=== PATIENT | male | born 2000 | race Caucasian/White ===

== ENCOUNTER 2021-08-03 14:37 | Inpatient (IN) ==
[2021-08-03] MEDS ORDERED: FAMOTIDINE 20MG IV PUSH 20 MG/5 ML SYR IV STA (15:15)
[2021-08-03] MEDS ORDERED: ONDANSETRON INJ 2 MG/ML 2 ML VIAL IV STA (15:15)
[2021-08-03] MEDS ORDERED: SODIUM CHLORIDE 0.9% 1000ML 2,000 ML IV ONE (15:15)
[2021-08-03 15:19] LABS: Hemoglobin 13.4 g/dL (14.0-18.0); Mean Corpuscular Hgb Conc 34.4 g/dL (32-36); Mean Platelet Volume 9.7 fL (7.4-10.4); Platelet Count 188 K/uL (130-400); RDW Coefficient of Variation 14.3 % (11.5-14.5); RDW Standard Deviation 50.5 fL (36.4-46.3); Red Blood Count 3.94 M/uL (4.7-6.1); White Blood Count 12.82 K/uL (4.8-10.8)
[2021-08-03 15:41] LABS: ALC (manual) 6.18 K/uL (1.2-3.4); ANC (manual) 5.04 K/uL (1.4-6.5); Basophils # (manual) 0.12 K/uL (0-0.2); Basophils % (manual) 0.9 %; Lymphocytes # (manual) 1.72 K/uL (1.2-3.4); Lymphocytes % (manual) 13.4 %; Metamyelocytes # (manual) 0.23 K/uL (0-0); Metamyelocytes % (manual) 1.8 %; Monocytes # (manual) 1.14 K/uL (0.11-0.59); Monocytes % (manual) 8.9 %; Myelocytes # (manual) 0.12 K/uL (0-0); Myelocytes % (manual) 0.9 %; Neutrophils # (manual) 5.04 K/uL (1.4-6.5); Neutrophils % (manual) 39.3 %; Polychromasia 1+; Reactive Lymphocytes # (manual) 4.46 K/uL; Reactive Lymphocytes % (manual) 34.8 %
[2021-08-03 15:55] LABS: INR 1.2 (0.9-1.1); Prothrombin Time 11.7 Seconds (9.0-12.0)
[2021-08-03 16:09] LABS: Albumin Globulin Ratio 0.8 (0.9-2); Albumin Level 3.6 gm/dl (3.4-5.0); BUN Creatinine Ratio 11.4 (10-20); Bilirubin Direct 7.5 mg/dl (0-0.2); Bilirubin,Total 10.2 mg/dl (0.2-1); Calcium 9.6 mg/dl (8.5-10.1); Creatinine Clr Calc Pharmacy 106.1 ml/min; Est GFR (African American) 106.7 ml/min; Est GFR (Non-African American) 92.1 ml/min; Globulin 4.7 gm/dl (2.5-4.0); Potassium 3.6 mmol/L (3.5-5.1); Total Protein 8.3 gm/dl (6.4-8.2)
[2021-08-03 16:30] LABS: Magnesium 2.2 mg/dl (1.8-2.4); Monotest Positive (Negative); Phosphorus 3.4 mg/dl (2.5-4.9)
[2021-08-03] MEDS ORDERED: OPTIRAY 320 100ml IV ONE (16:38)
--- NOTE | 2021-08-03 16:40 | Emergency Department Note ---
Impression & Plan Transaminitis, Direct hyperbilirubinemia, Infectious mononucleosis ED Provider Note NAME: ALENA WEISS AGE: 20 SEX: M ARRIVES VIA: Walk-In INFORMANT: Patient, ED PROVIDER(S): Juan Manuel Alanis MD CHIEF COMPLAINT: Jaundice. PLAN: Disposition: Admit MEDICAL DECISION MAKING: The patient is a pleasant 20-year-old gentleman, [employer] student who presents emergency department referred from [facility] for painless jaundice that the patient only noticed today when he was at the [facility] clinic. The patient reports he made his appointment to adjust today more because he has felt nauseated and has been not able to eat and drink much. He notes his roommates did comment that he looked pale but did not recognize the jaundice initially. He denies any frequent alcohol use or recent alcohol binging. He does admit to having viral illness symptoms several weeks ago where he reports feverishness, body aches, sore throat and mild congestion which resolved with out intervention. He reports he is vaccinated for COVID-19 numerous months ago and denies any known COVID-19 exposures. He does acknowledge that he was in contact with a friend who he suspects may have had mono approximately 6 weeks ago. He denies any known tick exposures. He denies any recent travel or camping. On arrival patient is relatively well-appearing in no acute distress, afebrile with heart in the 120s and vital signs otherwise stable. He does appear overtly jaundiced with scleral icterus. He appears clinically dry. His abdomen is benign. WBC 12.8K, nonspecific. H/H 13.4/39.0 without prior values for comparison. Platelets within normal limits. INR 1.2. Chemistry without metabolic acidosis. Total bilirubin 10.2 with direct bilirubin 7.5 with AST and ALT 423 and 686, respectively. Lipase is not elevated. [place] screen is positive. CT abd/pelvis demonstrates moderate hepatosplenomegaly with no evidence for biliary duct dilatation. Upon re-evaluation the patient did feel some improvement following IVF hydration, zofran, and pepcid. HR improving. Findings were reviewed with the patient and his father over the phone. They agree with becka faye for admission for further evaluation and management. Case was discussed with Dr. Pringle, [facility] hospitalist, who will evaluate the patient for admission. Triage Nursing notes reviewed and agree them. Prior medical records reviewed Vital Signs: reviewed and remarkable for tachycardia. Differential diagnosis: Infection, dehydration, metabolic abnormality, hypo/hyperglycemia, electrolyte disturbance, anemia, hypoxia, cardiac sources, intracerebral event, toxicologic, neurologic, as well as other pathologies. ER treatment provided: See below. Diagnostics interpreted by me: Cardiac Monitoring: An order for continuous cardiac monitoring was placed and demonstrated Sinus tachycardia, 120s bpm, no ectopy. Laboratory studies: See below Imaging studies: See below Consultation(s): Case was discussed with Dr. Pringle, [facility] hospitalist, who will evaluate the patient for admission. HPI: The patient is a pleasant 20-year-old gentleman, [employer] student who presents to the emergency department referred from [facility] for painless jaundice that the patient only noticed today when he was at the [facility] clinic. The patient reports he made his appointment to adjust today more because he has felt nauseated and has been not able to eat and drink much. He notes his roommates did comment that he looked pale but did not recognize the jaundice initially. He denies any frequent alcohol use or recent alcohol binging. He does admit to having viral illness symptoms several weeks ago where he reports feverishness, body aches, sore throat and mild congestion which resolved with out intervention. He reports he is vaccinated for COVID-19 numerous months ago and denies any known COVID-19 exposures. He does acknowledge that he was in contact with a friend who he suspects may have had mono approximately 6 weeks ago. He denies any known tick exposures. He denies any recent travel or camping. ROS: See above HPI for pertinent positives & negatives. A total of 10 systems reviewed and were otherwise negative. PAST MEDICAL HISTORY:See Below PAST SURGICAL HISTORY:See Below FAMILY HISTORY:See Below SOCIAL HISTORY:See Below HOME MEDICATIONS:See Below ALLERGIES:See Below VITALS:See Below PHYSICAL EXAMINATION: GENERAL: Awake, alert, relatively well-appearing, in no distress HENT: Normocephalic, atraumatic. Oropharynx with dry mucous membranes and otherwise unremarkable. EYES: Normal conjunctiva. Sclera with mild icterus bilaterally. NECK: Supple. No nuchal rigidity. FROM. No JVD. RESPIRATORY: Clear to auscultation. CARDIAC: Regular rate, normal rhythm. Extremities warm and well perfused. Pulses equal. ABDOMEN: Soft, non-distended. No tenderness to palpation. No rebound or guarding. No masses. RECTAL: Deferred. MUSCULOSKELETAL: Chest examination reveals no tenderness. The back is symmetrical on inspection without obvious abnormality. There is no CVA tenderness to palpation. No joint edema. LOWER EXTREMITIES: Calves are equal size bilaterally and non-tender. No edema. No discoloration. NEURO: Normal sensorium. No sensory or motor deficits noted. SKIN: Jaundice noted. No rash. 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 Beliefs That Will Affect Care: None Current Living Situation: Other Current Living Situation Comment: student at [employer] Other Information That Helps Us Care for You: No Feels Safe at Home: Yes Safety Concerns: Feels Safe At This Time Assistive Devices: None Allergies Allergies Allergy/AdvReac Type Severity Reaction Status Date / Time No Known Allergies Allergy Unverified 08/03/21 16:11 Home Meds Home Medications Medication Instructions Recorded Confirmed fexofenadine-pseudoephedrine ER 1 tab PO QAM 08/03/21 08/03/21 180 mg-240 mg tablet,ext.release 24 hr Results & Data (ED) Vital Signs Vital Signs - 24 hr 08/03/21 14:39 08/03/21 15:38 08/03/21 15:43 Temperature 36.3 C L Temperature Source Temporal Artery Scan Pulse Rate 129 H 105 H Pulse Rate from SpO2 Sensor 107 H Respiratory Rate 16 20 Respiratory Effort / Characteristics Non-Labored Respiratory Depth Normal Blood Pressure 149/65 H Blood Pressure Mean 93 Pulse Oximetry 99 97 99 Oxygen Delivery Method Room Air Sepsis Recent Fever Within 48 Hours No Sepsis New/Unexplained Change in Mental Status No Sepsis Action Taken by Nursing No Action Required 08/03/21 15:50 08/03/21 16:00 08/03/21 16:10 Temperature Temperature Source Pulse Rate 107 H 102 H 111 H Pulse Rate from SpO2 Sensor 110 H 103 H 111 H Respiratory Rate 21 17 20 Respiratory Effort / Characteristics Respiratory Depth Blood Pressure 139/88 119/89 Blood Pressure Mean 105 99 Pulse Oximetry 100 99 99 Oxygen Delivery Method Sepsis Recent Fever Within 48 Hours Sepsis New/Unexplained Change in Mental Status Sepsis Action Taken by Nursing 08/03/21 16:20 08/03/21 16:41 08/03/21 16:50 Temperature Temperature Source Pulse Rate 106 H 110 H 101 H Pulse Rate from SpO2 Sensor 106 H 103 H Respiratory Rate 18 14 22 Respiratory Effort / Characteristics Respiratory Depth Blood Pressure Blood Pressure Mean Pulse Oximetry 99 99 Oxygen Delivery Method Sepsis Recent Fever Within 48 Hours Sepsis New/Unexplained Change in Mental Status Sepsis Action Taken by Nursing 08/03/21 17:00 08/03/21 17:10 08/03/21 17:24 Temperature Temperature Source Pulse Rate 102 H 97 H 105 H Pulse Rate from SpO2 Sensor 101 H 97 H Respiratory Rate 23 19 22 Respiratory Effort / Characteristics Respiratory Depth Blood Pressure 131/73 Blood Pressure Mean 92 Pulse Oximetry 98 99 Oxygen Delivery Method Sepsis Recent Fever Within 48 Hours Sepsis New/Unexplained Change in Mental Status Sepsis Action Taken by Nursing 08/03/21 17:30 08/03/21 17:40 08/03/21 17:50 Temperature Temperature Source Pulse Rate 98 H 113 H 117 H Pulse Rate from SpO2 Sensor 98 H 108 H 117 H Respiratory Rate 21 15 18 Respiratory Effort / Characteristics Respiratory Depth Blood Pressure 142/87 H Blood Pressure Mean 105 Pulse Oximetry 99 98 97 Oxygen Delivery Method Sepsis Recent Fever Within 48 Hours Sepsis New/Unexplained Change in Mental Status Sepsis Action Taken by Nursing 08/03/21 18:00 08/03/21 18:10 08/03/21 18:20 Temperature Temperature Source Pulse Rate 110 H 102 H 130 H Pulse Rate from SpO2 Sensor 111 H 101 H 130 H Respiratory Rate 23 22 16 Respiratory Effort / Characteristics Respiratory Depth Blood Pressure Blood Pressure Mean Pulse Oximetry 97 96 97 Oxygen Delivery Method Sepsis Recent Fever Within 48 Hours Sepsis New/Unexplained Change in Mental Status Sepsis Action Taken by Nursing 08/03/21 18:30 Temperature Temperature Source Pulse Rate 105 H Pulse Rate from SpO2 Sensor 108 H Respiratory Rate 22 Respiratory Effort / Characteristics Respiratory Depth Blood Pressure 150/83 H Blood Pressure Mean 105 Pulse Oximetry 97 Oxygen Delivery Method Sepsis Recent Fever Within 48 Hours Sepsis New/Unexplained Change in Mental Status Sepsis Action Taken by Nursing Laboratory Data Attestation: I reviewed the patient's lab results. Result diagrams: 08/03/21 15:07 08/03/21 15:07 Lab Results 08/03/21 08/03/21 08/03/21 Range/Units 15:07 15:07 15:07 WBC 12.82 H (4.8-10.8) K/uL RBC 3.94 L (4.7-6.1) M/uL Hgb 13.4 L (14.0-18.0) g/dL Hct 39.0 L (42-52) % MCV 99.0 (80-100) fL MCH 34.0 (25-34) pg MCHC 34.4 (32-36) g/dL RDW Std Deviation 50.5 H (36.4-46.3) fL RDW Coeff of Emily 14.3 (11.5-14.5) % Plt Count 188 (130-400) K/uL MPV 9.7 (7.4-10.4) fL Neutrophils % (Manual) 39.3 % Lymphocytes % (Manual) 13.4 % Reactive Lymphs % (Man) 34.8 % Monocytes % (Manual) 8.9 % Basophils % (Manual) 0.9 % Metamyelocytes % (Man) 1.8 % Myelocytes % (Man) 0.9 % Neutrophils # (Manual) 5.04 (1.4-6.5) K/uL Total Absolute Neuts 5.04 (1.4-6.5) K/uL Lymphocytes # (Manual) 1.72 (1.2-3.4) K/uL Reactive Lymphs # 4.46 K/uL Total Abs Lymphocytes 6.18 H (1.2-3.4) K/uL Monocytes # (Manual) 1.14 H (0.11-0.59) K/uL Basophils # (Manual) 0.12 (0-0.2) K/uL Metamyelocytes # (Man) 0.23 H (0-0) K/uL Myelocytes # (Manual) 0.12 H (0-0) K/uL Polychromasia 1+ PT (9.0-12.0) Seconds INR (0.9-1.1) Sodium 134 L (136-145) mmol/L Potassium 3.6 (3.5-5.1) mmol/L Chloride 102 (98-107) mmol/L Carbon Dioxide 24 (21-32) mmol/L Anion Gap 9.0 (3-11) BUN 13 (7-18) mg/dl Creatinine 1.14 (0.6-1.4) mg/dl Est Cr Clr Drug Dosing 106.1 ml/min Est GFR ( Amer) 106.7 ml/min Est GFR (Non-Af Amer) 92.1 ml/min BUN/Creatinine Ratio 11.4 (10-20) Glucose 104 H (70-99) mg/dl Calcium 9.6 (8.5-10.1) mg/dl Phosphorus (2.5-4.9) mg/dl Magnesium (1.8-2.4) mg/dl Total Bilirubin 10.2 H (0.2-1) mg/dl Direct Bilirubin 7.5 H (0-0.2) mg/dl AST 423 H (15-37) U/L ALT 686 H (12-78) U/L Alkaline Phosphatase 230 H (45-117) U/L Total Protein 8.3 H (6.4-8.2) gm/dl Albumin 3.6 (3.4-5.0) gm/dl Globulin 4.7 H (2.5-4.0) gm/dl Albumin/Globulin Ratio 0.8 L (0.9-2) Lipase 247 (73-393) U/L Urine Color Urine Appearance (Clear) Urine pH (4.5-7.5) Ur Specific [place] (1.000-1.030) Urine Protein (Negative) Urine Glucose (UA) (Negative) Urine Ketones (Negative) Urine Blood (Negative) Urine Nitrite (Negative) Urine Bilirubin (Negative) Urine Urobilinogen (Negative) Ur Leukocyte Esterase (Negative) Urine WBC (Auto) (0-5) /hpf Urine RBC (Auto) (0-4) /hpf U Hyaline Cast (Auto) (0-5) /lpf U Epithel Cells (Auto) (0-5) /lpf Urine Bacteria (Auto) (Negative) Anaplasma Smear See Comment Babesia Smear See Comment Lyme Disease IgG Ab (Negative) Lyme Disease IgM Ab (Negative) COVID-19 Eval Order SARS-CoV-2 (PCR) (Negative) Monoscreen (Negative) 08/03/21 08/03/21 08/03/21 Range/Units 15:14 15:14 15:14 WBC (4.8-10.8) K/uL RBC (4.7-6.1) M/uL Hgb (14.0-18.0) g/dL Hct (42-52) % MCV (80-100) fL MCH (25-34) pg MCHC (32-36) g/dL RDW Std Deviation (36.4-46.3) fL RDW Coeff of Emily (11.5-14.5) % Plt Count (130-400) K/uL MPV (7.4-10.4) fL Neutrophils % (Manual) % Lymphocytes % (Manual) % Reactive Lymphs % (Man) % Monocytes % (Manual) % Basophils % (Manual) % Metamyelocytes % (Man) % Myelocytes % (Man) % Neutrophils # (Manual) (1.4-6.5) K/uL Total Absolute Neuts (1.4-6.5) K/uL Lymphocytes # (Manual) (1.2-3.4) K/uL Reactive Lymphs # K/uL Total Abs Lymphocytes (1.2-3.4) K/uL Monocytes # (Manual) (0.11-0.59) K/uL Basophils # (Manual) (0-0.2) K/uL Metamyelocytes # (Man) (0-0) K/uL Myelocytes # (Manual) (0-0) K/uL Polychromasia PT 11.7 (9.0-12.0) Seconds INR 1.2 H (0.9-1.1) Sodium (136-145) mmol/L Potassium (3.5-5.1) mmol/L Chloride (98-107) mmol/L Carbon Dioxide (21-32) mmol/L Anion Gap (3-11) BUN (7-18) mg/dl Creatinine (0.6-1.4) mg/dl Est Cr Clr Drug Dosing ml/min Est GFR ( Amer) ml/min Est GFR (Non-Af Amer) ml/min BUN/Creatinine Ratio (10-20) Glucose (70-99) mg/dl Calcium (8.5-10.1) mg/dl Phosphorus 3.4 (2.5-4.9) mg/dl Magnesium 2.2 (1.8-2.4) mg/dl Total Bilirubin (0.2-1) mg/dl Direct Bilirubin (0-0.2) mg/dl AST (15-37) U/L ALT (12-78) U/L Alkaline Phosphatase (45-117) U/L Total Protein (6.4-8.2) gm/dl Albumin (3.4-5.0) gm/dl Globulin (2.5-4.0) gm/dl Albumin/Globulin Ratio (0.9-2) Lipase (73-393) U/L Urine Color Urine Appearance (Clear) Urine pH (4.5-7.5) Ur Specific [place] (1.000-1.030) Urine Protein (Negative) Urine Glucose (UA) (Negative) Urine Ketones (Negative) Urine Blood (Negative) Urine Nitrite (Negative) Urine Bilirubin (Negative) Urine Urobilinogen (Negative) Ur Leukocyte Esterase (Negative) Urine WBC (Auto) (0-5) /hpf Urine RBC (Auto) (0-4) /hpf U Hyaline Cast (Auto) (0-5) /lpf U Epithel Cells (Auto) (0-5) /lpf Urine Bacteria (Auto) (Negative) Anaplasma Smear Babesia Smear Lyme Disease IgG Ab Negative (Negative) Lyme Disease IgM Ab Negative (Negative) COVID-19 Eval Order SARS-CoV-2 (PCR) (Negative) Monoscreen Positive A (Negative) 08/03/21 08/03/21 08/03/21 Range/Units 15:30 15:30 17:25 WBC (4.8-10.8) K/uL RBC (4.7-6.1) M/uL Hgb (14.0-18.0) g/dL Hct (42-52) % MCV (80-100) fL MCH (25-34) pg MCHC (32-36) g/dL RDW Std Deviation (36.4-46.3) fL RDW Coeff of Emily (11.5-14.5) % Plt Count (130-400) K/uL MPV (7.4-10.4) fL Neutrophils % (Manual) % Lymphocytes % (Manual) % Reactive Lymphs % (Man) % Monocytes % (Manual) % Basophils % (Manual) % Metamyelocytes % (Man) % Myelocytes % (Man) % Neutrophils # (Manual) (1.4-6.5) K/uL Total Absolute Neuts (1.4-6.5) K/uL Lymphocytes # (Manual) (1.2-3.4) K/uL Reactive Lymphs # K/uL Total Abs Lymphocytes (1.2-3.4) K/uL Monocytes # (Manual) (0.11-0.59) K/uL Basophils # (Manual) (0-0.2) K/uL Metamyelocytes # (Man) (0-0) K/uL Myelocytes # (Manual) (0-0) K/uL Polychromasia PT (9.0-12.0) Seconds INR (0.9-1.1) Sodium (136-145) mmol/L Potassium (3.5-5.1) mmol/L Chloride (98-107) mmol/L Carbon Dioxide (21-32) mmol/L Anion Gap (3-11) BUN (7-18) mg/dl Creatinine (0.6-1.4) mg/dl Est Cr Clr Drug Dosing ml/min Est GFR ( Amer) ml/min Est GFR (Non-Af Amer) ml/min BUN/Creatinine Ratio (10-20) Glucose (70-99) mg/dl Calcium (8.5-10.1) mg/dl Phosphorus (2.5-4.9) mg/dl Magnesium (1.8-2.4) mg/dl Total Bilirubin (0.2-1) mg/dl Direct Bilirubin (0-0.2) mg/dl AST (15-37) U/L ALT (12-78) U/L Alkaline Phosphatase (45-117) U/L Total Protein (6.4-8.2) gm/dl Albumin (3.4-5.0) gm/dl Globulin (2.5-4.0) gm/dl Albumin/Globulin Ratio (0.9-2) Lipase (73-393) U/L Urine Color Dark Yellow Urine Appearance Clear (Clear) Urine pH 5.5 (4.5-7.5) Ur Specific [place] > 1.045 H (1.000-1.030) Urine Protein Negative (Negative) Urine Glucose (UA) Negative (Negative) Urine Ketones 1+ H (Negative) Urine Blood Negative (Negative) Urine Nitrite Positive A (Negative) Urine Bilirubin 3+ H (Negative) Urine Urobilinogen Positive H (Negative) Ur Leukocyte Esterase Trace H (Negative) Urine WBC (Auto) 1-5 (0-5) /hpf Urine RBC (Auto) 0-4 (0-4) /hpf U Hyaline Cast (Auto) 0 (0-5) /lpf U Epithel Cells (Auto) 0-5 (0-5) /lpf Urine Bacteria (Auto) Negative (Negative) Anaplasma Smear Babesia Smear Lyme Disease IgG Ab (Negative) Lyme Disease IgM Ab (Negative) COVID-[address] Eval [address] Covid19 at [facility] SARS-CoV-2 (PCR) NEGATIVE (Negative) Monoscreen (Negative) Administered Medications Lactated Ringer's (Lr) 1,000 mls @ 125 mls/hr IV .Q8H JIMBO Stop: 09/02/21 18:59 Last Admin: 08/03/21 21:11 Dose: 125 mls/hr Documented by: [id number] Discontinued Medications Sodium Chloride (Nss 1000ml) 2,000 mls @ 999 mls/hr IV .Q2H1M ONE Stop: 08/03/21 17:15 Last Infusion: 08/03/21 17:54 Dose: 0 mls/hr Documented by: [id number] Admin: 08/03/21 15:25 Dose: 999 mls/hr Documented by: [id number] Famotidine (Pepcid 20mg Iv Push) 20 mg in 5 mls @ 2.5 mls/min IV NOW STA Stop: 08/03/21 15:16 Last Admin: 08/03/21 15:25 Dose: 2.5 mls/min Documented by: [id number] Ibuprofen (Ibuprofen 200 Mg Tab) 400 mg PO NOW STA Stop: 08/03/21 21:37 Last Admin: 08/03/21 22:01 Dose: 400 mg Documented by: [id number] Ioversol (Optiray 320 100ml) 84 ml IV ONCE ONE Stop: 08/03/21 16:39 Last Admin: 08/03/21 16:38 Dose: 84 ml Documented by: [id number] Menthol (Cough Drop (Sugar Free) Khai 24 Khai/1 Box) Confirm Administered Dose 24 khai BUCCAL .STK-MED ONE Stop: 08/03/21 21:30 Last Admin: 08/03/21 21:30 Dose: 24 khai Documented by: [id number] Ondansetron HCl (Ondansetron Inj 2 Mg/Ml 2 Ml Vial) 4 mg IV NOW STA Stop: 08/03/21 15:16 Last Admin: 08/03/21 15:25 Dose: 4 mg Documented by: [id number] Imaging Data Radiologist's Impression: Abdomen/Pelvis CT 08/03/21 15:15 CT abd pelvis IV con only CLINICAL HISTORY: painless jaundice COMPARISON STUDY: No previous studies for comparison. CT DOSE: 376.56 mGycm TECHNIQUE: Standard CT of the Abdomen and Pelvis was performed with IV contrast. A dose lowering technique was utilized adhering to the principles of ALARA. Contrast Volume: Optiray 320, 84 ml. The patient did not receive oral contrast. FINDINGS: Lung base: The lung bases are clear. Abdominal cavity: There is no evidence for abdominal mass, adenopathy or ascites. Liver: There is homogeneous attenuation of the liver parenchyma. There is no evidence for enhancing mass lesion. There is moderate hepatomegaly. There is no biliary duct dilatation. Spleen: There is homogeneous attenuation of the splenic parenchyma. There is no enhancing mass lesion. There is moderate splenomegaly. Pancreas: There is homogeneous attenuation of the pancreatic parenchyma. There is no evidence for mass lesion or peripancreatic fluid collection. Gall Bladder: The gallbladder is well distended with no evidence for intraluminal calculi, wall thickening or pericholecystic edema. Adrenal glands: The adrenal glands are normal in size and attenuation. There is no evidence for enhancing mass lesion. Kidneys: There is homogeneous attenuation of the renal parenchyma bilaterally. There is no evidence for renal calculus or hydronephrosis. There is no evidence for enhancing mass. Bowel: There are 2 linear radiopaque density seen within the bowel most characteristic of ingested material such as pills. The bowel loops are normally placed within the abdomen and pelvis without evidence for dilatation or obstruction. There is no evidence for mass lesion. There are no inflammatory changes present. There is no evidence for free air. There is no evidence for an inflamed appendix. Bladder: The bladder is distended with no evidence for focal mass, calculus or diverticulum. : There is no evidence for pelvic mass or adenopathy. There is no evidence for pelvic ascites. Vasculature: There is no evidence for aneurysmal dilatation of the abdominal aorta. Osseous structures: There is no acute osseous pathology. IMPRESSION: 1. Moderate hepatosplenomegaly with no evidence for biliary duct dilatation. 2. Distention of the urinary bladder. ACT 112: Negative or not required by law. Electronically signed by: Norberto Ferris M.D. 08/03/2021 5:00 PM Discharge Plan Visit Data Chief Complaint: Abnormal Labs/Diagnostic Testing Stated Complaint: JAUNDICE ED Provider: Juan Manuel Alanis Discharge Problem: Transaminitis, Direct hyperbilirubinemia, Infectious mononucleosis Patient Disposition: Admitted As Inpatient Discharge Instructions Interventions: ED Discharge Assessment Last Done: 08/03/21 20:49
[2021-08-03 17:01] LABS: Lyme Ab IgG w/WB Rflx Negative (Negative); Lyme Ab IgM w/WB Rflx Negative (Negative)
--- NOTE | 2021-08-03 17:01 | CT Scan Report ---
CT abd pelvis IV con only CLINICAL HISTORY: painless jaundice COMPARISON STUDY: No previous studies for comparison. CT DOSE: 376.56 mGycm TECHNIQUE: Standard CT of the Abdomen and Pelvis was performed with IV contrast. A dose lowering alfie hnique was utilized adhering to the principles of ALARA. Contrast Volume: Optiray 320, 84 ml. The patient did not receive oral contrast. FINDINGS: Lung base: The lung bases are clear. Abdominal cavity: There is no evidence for abdominal mass, adenopathy or ascites. Liver: There is homogeneous attenuation of the liver parenchyma. There is no evidence for enhancing m ass lesion. There is moderate hepatomegaly. There is no biliary duct dilatation. Spleen: There is homogeneous attenuation of the splenic parenchyma. There is no enhancing mass lesion . There is moderate splenomegaly. Pancreas: There is homogeneous attenuation of the pancreatic parenchyma. There is no evidence for mas s lesion or peripancreatic fluid collection. Gall Bladder: The gallbladder is well distended with no evidence for intraluminal calculi, wall thick ening or pericholecystic edema. Adrenal glands: The adrenal glands are normal in size and attenuation. There is no evidence for enhan cing mass lesion. Kidneys: There is homogeneous attenuation of the renal parenchyma bilaterally. There is no evidence f or renal calculus or hydronephrosis. There is no evidence for enhancing mass. Bowel: There are 2 linear radiopaque density seen within the bowel most characteristic of ingested ma terial such as pills. The bowel loops are normally placed within the abdomen and pelvis without evide nce for dilatation or obstruction. There is no evidence for mass lesion. There are no inflammatory ch anges present. There is no evidence for free air. There is no evidence for an inflamed appendix. Bladder: The bladder is distended with no evidence for focal mass, calculus or diverticulum. : There is no evidence for pelvic mass or adenopathy. There is no evidence for pelvic ascites. Vasculature: There is no evidence for aneurysmal dilatation of the abdominal aorta. Osseous structures: There is no acute osseous pathology. IMPRESSION: 1. Moderate hepatosplenomegaly with no evidence for biliary duct dilatation. 2. Distention of the urinary bladder. ACT 112: Negative or not required by law. Electronically signed by: Norberto Ferris M.D. 08/03/2021 5:00 PM
[2021-08-03 17:35] LABS: Appearance Urine Clear (Clear); Bacteria Urine Automated Negative (Negative); Blood Urine Negative (Negative); Cast Urine Automated 0 /lpf (0-5); Color Urine Dark Yellow; Epithelial Cell Urine Auto 0-5 /lpf (0-5); Glucose Urine UA Negative (Negative); Ketones Urine 1+ (Negative); Leukocyte Esterase Urine Trace (Negative); Nitrite Urine Positive (Negative); Protein Urine Negative (Negative); RBC Urine Automated 0-4 /hpf (0-4); Specific Gravity Urine > 1.045 (1.000-1.030); Urobilinogen Urine Positive (Negative); pH Urine 5.5 (4.5-7.5)
[2021-08-03 17:38] LABS: Bilirubin Urine 3+ (Negative)
--- NOTE | 2021-08-03 18:04 | History & Physical Report ---
Date of Service August 03, 2021 Assessment & Plan (1) Transaminitis: Plan: 20-year-old male without significant past medical history presented for nausea and jaundice, subsequently found to have evidence of transaminitis, direct hyperbilirubinemia, and positive Monospot. Acute liver injury (transaminitis, direct hyperbilirubinemia) Patient presenting with transaminitis indirect hyperbilirubinemia in the setting of several days of constitutional illness and previous sore throat Work-up as follows: Recent salivary contact approximately 6 weeks ago with another individual Jaundice appreciated on exam, as well as mild hepatosplenomegaly Mild leukocytosis (thirteen) with lymphocytic predominance; notable presence of metamyelocytes and myelocytes INR mildly elevated 1.2 Mild hyponatremia at 134 ALT predominant transaminitis (ALT 686/AST 423) Negative Anaplasma smear, Lyme immunoglobulins negative, Covid negative CT-A/P demonstrating moderate hepatosplenomegaly without biliary ductal dilatation Primarily suspect that his clinical appearance is secondary to infectious mononucleosis. Low risk for sexually transmitted etiologies, denies IV drug use. Given CT abdomen pelvis and exam, lower concern for stone related etiology In lieu of secondary work-up: We will check HIV, EBV, CMV, hepatitis panel Continue LR @ 125cc/hr Monitor INR. If worsening, can give vitamin K Can consider GI consult and ultrasound of right upper quadrant if worsening symptoms/labs With regard to his splenomegaly, will require counseling regarding physical activity modification prior to discharge Elevated INR On admission, noted to be at 1.2 Likely secondary to the above. Monitor. If continues to rise, can consider vitamin K Psoriasis Stable, no acute needs. Code: Full code Dispo: MedSurg Diet: Regular PPx: SCDs (2) Direct hyperbilirubinemia: (3) Infectious mononucleosis: (4) Hyponatremia: (5) Acute hepatitis: History of Present Illness Primary Care Provider: [facility] Isaias is a 20-year-old male with a history of psoriasis (on biologic) who presented to [facility] following referral from [facility] for jaundice and generalized illness. History is obtained from patient. Patient states that on Monday, he began having a sore throat and felt ill. He says that as the week went on, he attempted to do his schoolwork, but progressively felt more ill. He felt febrile. Says he lost his appetite. O ccasionally felt nauseous without vomiting. No significant belly pain throughout this time. This morning, he did take an exam, but because feeling ill, he did decide to go to [facility] for evaluation. On further history taking, he said that approximately 6 weeks ago, he did have direct salivary contact with another individual; unknown mono status. He has felt in his normal health up until Monday. He is not currently or formally sexually active. Denies any use of IV drugs. Denies any alcohol use. His only significant past medical history is psoriasis, for which he is prescribed to the biologic. He last took this approximately 4 weeks ago. He does work at the [employer]. In the ER, patient was found to be mildly tachycardic and afebrile with jaundice. His labs were significant for a white count of approximately 13,000, normal platelets, INR 1.2. He had evidence of a direct hyperbilirubinemia with total bilirubin at 10.2, direct bilirubin at 7.5. Transaminitis appreciated with AST 423 and ALT 686. His mono screen was positive. Covid negative. Lipase negative. He did undergo a CT of the abdomen and pelvis, which did demonstrate moderate hepatosplenomegaly without evidence of biliary ductal dilation. He was given 2 L of fluid, Zofran, and famotidine. Allergies Allergy/AdvReac Type Severity Reaction Status Date / Time No Known Allergies Allergy Unverified 08/03/21 16:11 Home Medications Medication Instructions Recorded Confirmed Type fexofenadine-pseudoephedrine ER 1 tab PO QAM 08/03/21 08/03/21 History 180 mg-240 mg tablet,ext.release 24 hr Past Med/Surg History Medical History (Updated 08/04/21 @ 06:21 by Vasyl Pringle) Psoriasis Surgical History (Updated 08/04/21 @ 06:17 by Vasyl Pringle) No pertinent past surgical history Family History Other Family history non-contributory Social History Smoking Status: Never smoker Do You Dip or Chew Tobacco: No; Hx Alcohol Use: No Hx Substance Use: No Preferred Language: Romanian Communication Ability: Effective [employer]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 He is in no acute distress. HEENT: NCAT. Eyes - Sclera are icteric without injection. PERRL. EOMs display full ROM bilaterally. Mouth - MMM with no obvious tonsillar edema or exudates. Nose - nasal turbinates are uninflamed and without discharge. Neck - supple and without LAD. Cardiac: Tachycardic with regular rhythm; S1 and S2 present with no murmurs, rubs, or gallops. Pulmonary: Good respiratory effort with symmetric expansion of the chest. No use of accessory muscles. Lungs were clear to auscultation bilaterally with mild diminishment of breath sounds - no crackles or wheezes on my exam Abdominal: Normoactive bowel sounds. Abdomen was soft, nondistended, and non- tender to palpation. Mild hepatosplenomegaly appreciated. Extremities: Upper and lower extremities are warm and well perfused. Capillary refill assessed in UE was < 3 sec. Psych: Well-developed, well-nourished, appropriately dressed for occasion. Behavior is cooperative and appropriate. Affect is WNL. Insight is appropriate. Results & Data Results & Data ([facility]) Vital Signs (Past 12 Hours) Vital Signs Temp Pulse Resp BP Pulse Ox 08/03/21 15:50 107 H 21 139/88 100 08/03/21 15:43 105 H 20 99 08/03/21 15:38 97 08/03/21 14:39 36.3 C L 129 H 16 149/65 H 99 Laboratory Results Laboratory Results - last 24 hr 08/03/21 08/03/21 08/03/21 15:07 15:07 15:07 WBC 12.82 H RBC 3.94 L Hgb 13.4 L Hct 39.0 L MCV 99.0 MCH 34.0 MCHC 34.4 RDW Std Deviation 50.5 H RDW Coeff of Emily 14.3 Plt Count 188 MPV 9.7 Neutrophils % (Manual) 39.3 Lymphocytes % (Manual) 13.4 Reactive Lymphs % (Man) 34.8 Monocytes % (Manual) 8.9 Basophils % (Manual) 0.9 Metamyelocytes % (Man) 1.8 Myelocytes % (Man) 0.9 Neutrophils # (Manual) 5.04 Total Absolute Neuts 5.04 Lymphocytes # (Manual) 1.72 Reactive Lymphs # 4.46 Total Abs Lymphocytes 6.18 H Monocytes # (Manual) 1.14 H Basophils # (Manual) 0.12 Metamyelocytes # (Man) 0.23 H Myelocytes # (Manual) 0.12 H Polychromasia 1+ PT INR Sodium 134 L Potassium 3.6 Chloride 102 Carbon Dioxide 24 Anion Gap 9.0 BUN 13 Creatinine 1.14 Est Cr Clr Drug Dosing 106.1 Est GFR ( Amer) 106.7 Est GFR (Non-Af Amer) 92.1 BUN/Creatinine Ratio 11.4 Glucose 104 H Calcium 9.6 Phosphorus Magnesium Total Bilirubin 10.2 H Direct Bilirubin 7.5 H AST 423 H ALT 686 H Alkaline Phosphatase 230 H C-Reactive Protein Total Protein 8.3 H Albumin 3.6 Globulin 4.7 H Albumin/Globulin Ratio 0.8 L Lipase 247 Procalcitonin Urine Color Urine Appearance Urine pH Ur Specific [place] Urine Protein Urine Glucose (UA) Urine Ketones Urine Blood Urine Nitrite Urine Bilirubin Urine Urobilinogen Ur Leukocyte Esterase Urine WBC (Auto) Urine RBC (Auto) U Hyaline Cast (Auto) U Epithel Cells (Auto) Urine Bacteria (Auto) Anaplasma Smear See Comment A. phagocytophilum DNA Babesia Smear See Comment Babesia microti DNA PCR Lyme Disease IgG Ab Lyme Disease IgM Ab COVID-19 Eval Order SARS-CoV-2 (PCR) CMV IgM Ab CMV IgG Ab/TORCH EBV Capsid Ag IgG Ab EBV Capsid Ag IgM Ab EBV Nuclear Antigen Ab EBV Antibody Interp Hepatitis A IgM Ab Hep Bs Antigen Hep B Core IgM Ab Hepatitis C Antibody Monoscreen HIV 1&2 Ab/P24 Ag 4thGn 08/03/21 08/03/21 08/03/21 15:14 15:14 15:14 WBC RBC Hgb Hct MCV MCH MCHC RDW Std Deviation RDW Coeff of Emily Plt Count MPV Neutrophils % (Manual) Lymphocytes % (Manual) Reactive Lymphs % (Man) Monocytes % (Manual) Basophils % (Manual) Metamyelocytes % (Man) Myelocytes % (Man) Neutrophils # (Manual) Total Absolute Neuts Lymphocytes # (Manual) Reactive Lymphs # Total Abs Lymphocytes Monocytes # (Manual) Basophils # (Manual) Metamyelocytes # (Man) Myelocytes # (Manual) Polychromasia PT 11.7 INR 1.2 H Sodium Potassium Chloride Carbon Dioxide Anion Gap BUN Creatinine Est Cr Clr Drug Dosing Est GFR ( Amer) Est GFR (Non-Af Amer) BUN/Creatinine Ratio Glucose Calcium Phosphorus Magnesium Total Bilirubin Direct Bilirubin AST ALT Alkaline Phosphatase C-Reactive Protein Total Protein Albumin Globulin Albumin/Globulin Ratio Lipase Procalcitonin Urine Color Urine Appearance Urine pH Ur Specific [place] Urine Protein Urine Glucose (UA) Urine Ketones Urine Blood Urine Nitrite Urine Bilirubin Urine Urobilinogen Ur Leukocyte Esterase Urine WBC (Auto) Urine RBC (Auto) U Hyaline Cast (Auto) U Epithel Cells (Auto) Urine Bacteria (Auto) Anaplasma Smear A. phagocytophilum DNA Pending Babesia Smear Babesia microti DNA PCR Lyme Disease IgG Ab Negative Lyme Disease IgM Ab Negative COVID-19 Eval Order SARS-CoV-2 (PCR) CMV IgM Ab CMV IgG Ab/TORCH EBV Capsid Ag IgG Ab EBV Capsid Ag IgM Ab EBV Nuclear Antigen Ab EBV Antibody Interp Hepatitis A IgM Ab Hep Bs Antigen Hep B Core IgM Ab Hepatitis C Antibody Monoscreen Positive A HIV 1&2 Ab/P24 Ag 4thGn 08/03/21 08/03/21 08/03/21 15:14 15:14 15:30 WBC RBC Hgb Hct MCV MCH MCHC RDW Std Deviation RDW Coeff of Emily Plt Count MPV Neutrophils % (Manual) Lymphocytes % (Manual) Reactive Lymphs % (Man) Monocytes % (Manual) Basophils % (Manual) Metamyelocytes % (Man) Myelocytes % (Man) Neutrophils # (Manual) Total Absolute Neuts Lymphocytes # (Manual) Reactive Lymphs # Total Abs Lymphocytes Monocytes # (Manual) Basophils # (Manual) Metamyelocytes # (Man) Myelocytes # (Manual) Polychromasia PT INR Sodium Potassium Chloride Carbon Dioxide Anion Gap BUN Creatinine Est Cr Clr Drug Dosing Est GFR ( Amer) Est GFR (Non-Af Amer) BUN/Creatinine Ratio Glucose Calcium Phosphorus 3.4 Magnesium 2.2 Total Bilirubin Direct Bilirubin AST ALT Alkaline Phosphatase C-Reactive Protein Total Protein Albumin Globulin Albumin/Globulin Ratio Lipase Procalcitonin Urine Color Urine Appearance Urine pH Ur Specific [place] Urine Protein Urine Glucose (UA) Urine Ketones Urine Blood Urine Nitrite Urine Bilirubin Urine Urobilinogen Ur Leukocyte Esterase Urine WBC (Auto) Urine RBC (Auto) U Hyaline Cast (Auto) U Epithel Cells (Auto) Urine Bacteria (Auto) Anaplasma Smear A. phagocytophilum DNA Babesia Smear Babesia microti DNA PCR Pending Lyme Disease IgG Ab Lyme Disease IgM Ab COVID-19 Eval Order Covid19 at [facility] SARS-CoV-2 (PCR) CMV IgM Ab CMV IgG Ab/TORCH EBV Capsid Ag IgG Ab EBV Capsid Ag IgM Ab EBV Nuclear Antigen Ab EBV Antibody Interp Hepatitis A IgM Ab Hep Bs Antigen Hep B Core IgM Ab Hepatitis C Antibody Monoscreen HIV 1&2 Ab/P24 Ag 4thGn 08/03/21 08/03/21 08/03/21 15:30 17:25 19:01 WBC RBC Hgb Hct MCV MCH MCHC RDW Std Deviation RDW Coeff of Emily Plt Count MPV Neutrophils % (Manual) Lymphocytes % (Manual) Reactive Lymphs % (Man) Monocytes % (Manual) Basophils % (Manual) Metamyelocytes % (Man) Myelocytes % (Man) Neutrophils # (Manual) Total Absolute Neuts Lymphocytes # (Manual) Reactive Lymphs # Total Abs Lymphocytes Monocytes # (Manual) Basophils # (Manual) Metamyelocytes # (Man) Myelocytes # (Manual) Polychromasia PT INR Sodium Potassium Chloride Carbon Dioxide Anion Gap BUN Creatinine Est Cr Clr Drug Dosing Est GFR ( Amer) Est GFR (Non-Af Amer) BUN/Creatinine Ratio Glucose Calcium Phosphorus Magnesium Total Bilirubin Direct Bilirubin AST ALT Alkaline Phosphatase C-Reactive Protein Total Protein Albumin Globulin Albumin/Globulin Ratio Lipase Procalcitonin Urine Color Dark Yellow Urine Appearance Clear Urine pH 5.5 Ur Specific [place] > 1.045 H Urine Protein Negative Urine Glucose (UA) Negative Urine Ketones 1+ H Urine Blood Negative Urine Nitrite Positive A Urine Bilirubin 3+ H Urine Urobilinogen Positive H Ur Leukocyte Esterase Trace H Urine WBC (Auto) 1-5 Urine RBC (Auto) 0-4 U Hyaline Cast (Auto) 0 U Epithel Cells (Auto) 0-5 Urine Bacteria (Auto) Negative Anaplasma Smear A. phagocytophilum DNA Babesia Smear Babesia microti DNA PCR Lyme Disease IgG Ab Lyme Disease IgM Ab COVID-19 Eval Order SARS-CoV-2 (PCR) NEGATIVE CMV IgM Ab CMV IgG Ab/TORCH EBV Capsid Ag IgG Ab EBV Capsid Ag IgM Ab EBV Nuclear Antigen Ab EBV Antibody Interp Hepatitis A IgM Ab Hep Bs Antigen Prelim Pos A Hep B Core IgM Ab Hepatitis C Antibody Neg Monoscreen HIV 1&2 Ab/P24 Ag 4thGn 08/03/21 08/03/21 08/03/21 19:01 19:01 19:01 WBC RBC Hgb Hct MCV MCH MCHC RDW Std Deviation RDW Coeff of Emily Plt Count MPV Neutrophils % (Manual) Lymphocytes % (Manual) Reactive Lymphs % (Man) Monocytes % (Manual) Basophils % (Manual) Metamyelocytes % (Man) Myelocytes % (Man) Neutrophils # (Manual) Total Absolute Neuts Lymphocytes # (Manual) Reactive Lymphs # Total Abs Lymphocytes Monocytes # (Manual) Basophils # (Manual) Metamyelocytes # (Man) Myelocytes # (Manual) Polychromasia PT INR Sodium Potassium Chloride Carbon Dioxide Anion Gap BUN Creatinine Est Cr Clr Drug Dosing Est GFR ( Amer) Est GFR (Non-Af Amer) BUN/Creatinine Ratio Glucose Calcium Phosphorus Magnesium Total Bilirubin Direct Bilirubin AST ALT Alkaline Phosphatase C-Reactive Protein Total Protein Albumin Globulin Albumin/Globulin Ratio Lipase Procalcitonin Urine Color Urine Appearance Urine pH Ur Specific [place] Urine Protein Urine Glucose (UA) Urine Ketones Urine Blood Urine Nitrite Urine Bilirubin Urine Urobilinogen Ur Leukocyte Esterase Urine WBC (Auto) Urine RBC (Auto) U Hyaline Cast (Auto) U Epithel Cells (Auto) Urine Bacteria (Auto) Anaplasma Smear A. phagocytophilum DNA Babesia Smear Babesia microti DNA PCR Lyme Disease IgG Ab Lyme Disease IgM Ab COVID-19 Eval Order SARS-CoV-2 (PCR) CMV IgM Ab Pending CMV IgG Ab/TORCH Pending EBV Capsid Ag IgG Ab Cancelled EBV Capsid Ag IgM Ab Cancelled EBV Nuclear Antigen Ab Cancelled EBV Antibody Interp Cancelled Hepatitis A IgM Ab Pending Hep Bs Antigen Pending Hep B Core IgM Ab Pending Hepatitis C Antibody Monoscreen HIV 1&2 Ab/P24 Ag 4thGn 08/03/21 08/03/21 08/03/21 19:01 19:01 19:01 WBC RBC Hgb Hct MCV MCH MCHC RDW Std Deviation RDW Coeff of Emily Plt Count MPV Neutrophils % (Manual) Lymphocytes % (Manual) Reactive Lymphs % (Man) Monocytes % (Manual) Basophils % (Manual) Metamyelocytes % (Man) Myelocytes % (Man) Neutrophils # (Manual) Total Absolute Neuts Lymphocytes # (Manual) Reactive Lymphs # Total Abs Lymphocytes Monocytes # (Manual) Basophils # (Manual) Metamyelocytes # (Man) Myelocytes # (Manual) Polychromasia PT INR Sodium Potassium Chloride Carbon Dioxide Anion Gap BUN Creatinine Est Cr Clr Drug Dosing Est GFR ( Amer) Est GFR (Non-Af Amer) BUN/Creatinine Ratio Glucose Calcium Phosphorus Magnesium Total Bilirubin Direct Bilirubin AST ALT Alkaline Phosphatase C-Reactive Protein 1.68 H Total Protein Albumin Globulin Albumin/Globulin Ratio Lipase Procalcitonin 0.82 H Urine Color Urine Appearance Urine pH Ur Specific [place] Urine Protein Urine Glucose (UA) Urine Ketones Urine Blood Urine Nitrite Urine Bilirubin Urine Urobilinogen Ur Leukocyte Esterase Urine WBC (Auto) Urine RBC (Auto) U Hyaline Cast (Auto) U Epithel Cells (Auto) Urine Bacteria (Auto) Anaplasma Smear A. phagocytophilum DNA Babesia Smear Babesia microti DNA PCR Lyme Disease IgG Ab Lyme Disease IgM Ab COVID-19 Eval Order SARS-CoV-2 (PCR) CMV IgM Ab CMV IgG Ab/TORCH EBV Capsid Ag IgG Ab EBV Capsid Ag IgM Ab EBV Nuclear Antigen Ab EBV Antibody Interp Hepatitis A IgM Ab Hep Bs Antigen Hep B Core IgM Ab Hepatitis C Antibody Monoscreen HIV 1&2 Ab/P24 Ag 4thGn Neg Diagnostic Findings Abdomen/Pelvis CT 08/03/21 15:15 CT abd pelvis IV con only CLINICAL HISTORY: painless jaundice COMPARISON STUDY: No previous studies for comparison. CT DOSE: 376.56 mGycm TECHNIQUE: Standard CT of the Abdomen and Pelvis was performed with IV contrast. A dose lowering technique was utilized adhering to the principles of ALARA. Contrast Volume: Optiray 320, 84 ml. The patient did not receive oral contrast. FINDINGS: Lung base: The lung bases are clear. Abdominal cavity: There is no evidence for abdominal mass, adenopathy or ascites. Liver: There is homogeneous attenuation of the liver parenchyma. There is no evidence for enhancing mass lesion. There is moderate hepatomegaly. There is no biliary duct dilatation. Spleen: There is homogeneous attenuation of the splenic parenchyma. There is no enhancing mass lesion. There is moderate splenomegaly. Pancreas: There is homogeneous attenuation of the pancreatic parenchyma. There is no evidence for mass lesion or peripancreatic fluid collection. Gall Bladder: The gallbladder is well distended with no evidence for intraluminal calculi, wall thickening or pericholecystic edema. Adrenal glands: The adrenal glands are normal in size and attenuation. There is no evidence for enhancing mass lesion. Kidneys: There is homogeneous attenuation of the renal parenchyma bilaterally. There is no evidence for renal calculus or hydronephrosis. There is no evidence for enhancing mass. Bowel: There are 2 linear radiopaque density seen within the bowel most characteristic of ingested material such as pills. The bowel loops are normally placed within the abdomen and pelvis without evidence for dilatation or obstruction. There is no evidence for mass lesion. There are no inflammatory changes present. There is no evidence for free air. There is no evidence for an inflamed appendix. Bladder: The bladder is distended with no evidence for focal mass, calculus or diverticulum. : There is no evidence for pelvic mass or adenopathy. There is no evidence for pelvic ascites. Vasculature: There is no evidence for aneurysmal dilatation of the abdominal aorta. Osseous structures: There is no acute osseous pathology. IMPRESSION: 1. Moderate hepatosplenomegaly with no evidence for biliary duct dilatation. 2. Distention of the urinary bladder. ACT 112: Negative or not required by law. Electronically signed by: Norberto Ferris M.D. 08/03/2021 5:00 PM Chest X-Ray 08/03/21 19:25 TWO VIEW CHEST CLINICAL HISTORY: Wheezing. FINDINGS: PA and lateral chest radiographs are obtained. No prior studies are available for comparison at the time of dictation. The cardiomediastinal silhouette is unremarkable. Mild perihilar peribronchial thickening suggests lower airway disease. No focal airspace consolidation or pleural effusion is identified. There is no pneumothorax. The bony thorax appears intact. IMPRESSION: Mild perihilar peribronchial thickening suggests lower airway disease. No focal airspace consolidation or pleural effusion is identified. ACT 112: Negative or not required by law. Electronically signed by: Sotero Murcia M.D. 08/03/2021 7:54 PM Supervising Physician Co-Signing Physician Notes Attending Attestation and Admission Note: Pt seen/examined, chart reviewed, care plan d/w resident Dr Kosta Redmond. I agree w/ the beaver components of his documentation. 20yo male with psoriasis on a biological agent presents with several days of chills followed by the development of sore throat and fatigue. Chills began late last week/early weekend with sore throat developing about 2 days ago. When he presented today to [facility] on campus he was noted to be jaundiced and advised to go to the ER. In the [facility] ER labs showed evidence of atypical lymphocytosis on CBC, acute hepatitis, and + monoscreen. Denies prior h/o liver disease. Denies any etoh use. Denies tylenol usage. In addition, about 1 month ago, he had a respiratory illness marked by significant cough. He continues to have mild lingering cough and chest congestion. PMH/PSH/allergies/meds/sochx/famhx - reviewed VSS, afebrile, mild tachycardia gen - NAD, looks ill but nontoxic eyes - icterus skin - jaundice to waistline; no rash throat - injected tonsils, 1-2+ b/l, no exudate neck - multiple tender enlarged cervical lymph nodes b/l heart - tachy, s1 s2, no murmur lungs - poor airation, occasional end-exp crackle b/l, occasional end-exp wheeze abd - liver enlarged, spleen enlarged and palpable; no ascites, NT; BS+ ext - no edema labs reviewed imaging reviewed A/P: 1. acute hepatitis with minimally elevated INR likely 2nd to acute mono 2. positive monoscreen with clinical symptoms/signs/labs/etc all c/w acute mono 3. acute bronchitis, likely viral etiology, 3-4 weeks ago with cxr findings c/w viral process 4. chronic psoriasis 5. positive Hep B surface Ag - preliminary supportive care including IV fluids albuterol for #3 repeat LFTs, INR, etc in am #5 - await confirmatory testing along with Hep B antibody levels no history of etoh or tylenol thus defer on NAC protocol will obtain formal GI consultation given the significant hepatitis along with ?hep B as well other w/u per Dr Redmond to be complete but again all findings c/w acute mono Vasyl Pringle MD Resident Activity Tracking Resident Involvement: Resident Care Provided Care Provided: Adult Hospital Medicine
[2021-08-03] MEDS ORDERED: ONDANSETRON INJ 2 MG/ML 2 ML VIAL IV PRN (18:32)
--- NOTE | 2021-08-03 19:55 | XRay Report ---
TWO VIEW CHEST CLINICAL HISTORY: Wheezing. FINDINGS: PA and lateral chest radiographs are obtained. No prior studies are available for compariso n at the time of dictation. The cardiomediastinal silhouette is unremarkable. Mild perihilar peribro nchial thickening suggests lower airway disease. No focal airspace consolidation or pleural effusion is identified. There is no pneumothorax. The bony thorax appears intact. IMPRESSION: Mild perihilar peribronchial thickening suggests lower airway disease. No focal airspace consolidation or pleural effusion is identified. ACT 112: Negative or not required by law. Electronically signed by: Sotero Murcia M.D. 08/03/2021 7:54 PM
[2021-08-03 21:08] LABS: Hepatitis C IgG 13Yrs+Old_Rflx Neg (Neg)
[2021-08-03] MEDS: LACTATED RINGER'S 1,000 ML IV SCH (21:11)
[2021-08-03] MEDS ORDERED: COUGH DROP (SUGAR FREE) LOZ 24 LOZ/1 BOX BUCCAL ONE (21:29)
[2021-08-03] MEDS ORDERED: IBUPROFEN 200 MG TAB PO STA (21:36)
[2021-08-04] MEDS: LACTATED RINGER'S 1,000 ML IV SCH ×2 (04:45→13:42)
--- NOTE | 2021-08-04 06:31 | Billing Data ---
Date of Service August 03, 2021 Coding Level of Care Code 15062 Initial Inpt Care Lvl 2
[2021-08-04] MEDS ORDERED: ALBUTEROL HFA 8 GM INHALER INH SCH ×2 (07:00→09:00)
[2021-08-04] MEDS ORDERED: ALBUTEROL HFA 8 GM INHALER INH PRN (08:06)
[2021-08-04] MEDS ORDERED: IBUPROFEN 600 MG TAB PO PRN (08:23)
--- NOTE | 2021-08-04 08:26 | Hospitalist Progress Note ---
Date of Service August 04, 2021 Assessment & Plan (1) Transaminitis: Plan: 20-year-old male without significant past medical history presented for nausea and jaundice (for several days until told by co-workers). Occ Etoh use Subsequently found to have evidence of transaminitis, direct hyperbilirubinemia, and positive Monospot. COVID [address]-A/P demonstrating moderate hepatosplenomegaly without biliary ductal dilatation WBC 13, lymphocytic predominance-- > wnl on repeat On IVF LR @125cc/hr --> Now tolerating diet and can d/c TB 10.2--> 6.2 AST 423 --> 450 ALT 686--> 693 ALP 230--> 198 Anaplasmosis smear negative, PCR pending, Lyme Negative, babesia pending HIV, , CMV, Hepatitis panel pending --> HepBsAg positive on preliminary --> Should be noted patient on Otezla for hx Psoriasis and would states he had lab testing prior to start but unsure what labs those were. Given insurance wouldn't approve without would suspect should have been checked in past GI consulted given acute hepatitis, +Hep B as above -- appreciate recs Instructions for avoidance of alcohol as well as limiting physical activity given +monospot Will need outpatient follow up monitoring of LFTs to ensure returning to normal and cleared HBsAg x 2 Cough drops prn sore throat, zofran prn nausea, ibuprofen prn fever/headache Albuterol HFA prn sob/wheezing --> improved on exam Continue to monitor overnight, patient hopeful for d/c in AM (2) Direct hyperbilirubinemia: Plan: Bilirubin trending down Continue to monitor Will need outpatient follow up/labs/hepBsAg as above (3) Infectious mononucleosis: Plan: + monospot as above (4) Hyponatremia: Plan: resolved with IVF continue to monitor hydration status in AM now off IVF (5) Acute hepatitis: Plan: as above, 2nd to mono +/- hepatits B? Other labs pending as above Elevated INR On admission, noted to be at 1.2. Repeat same Likely secondary to the above. Monitor. If continues to rise, can consider vitamin K Psoriasis Stable, no acute needs. On Otezla [employer] DVT Prophylaxis SCDs, ambulation Admission and Anticipated Discharge Date Admission Date: August 03, 2021 Subjective Patient evaluated this morning. Feeling better. No pain. No further nausea. No vomiting and he is actually able to eat today which is a change from days past. Jaundice improving -- he notes he didn't notice and thought was just feeling ill/dehydrated until he went to work and they noted him to be yellow. Minor sore throat but improving. Discussed avoiding Tylenol given elevated LFTs. Discussed abstaining from all alcohol for several weeks as well as contact sports. Hep BsAg positive and awaiting further testing but suspect from mono process. He is on Otezla for hx Psoriasis and noted lab testing done prior to starting that but not sure what was drawn. From [place] and is [employer] student, finance major. Will need school note. Hopeful for d/c tomorrow if labs continuing to improve/able to keep up with PO. Review of Systems Review of Systems: All systems reviewed & are unremarkable except as noted in HPI & below Physical Exam Physical Exam: General: WD/WN, no acute appearing male, pleasant and cooperative resting in bed Eyes: +scleral icterus, EOMI ENT: mmm, +tonsillar injection without exudate, +cervical lymphadenopathy, moist mm Resp: CTAB, faint expiratory wheezing, no crackles or rales, on room air CV: RRR, no m/r/g, no edema GI: + BS, soft, non-tender, +hepatomegaly ; no blum MSK; moves all extremities, no focal deficits Psych: AOx3, euthymic Results & Data Results & Data ([facility]) Vital Signs (Past 12 Hours) Vital Signs Temp Pulse Pulse Resp BP BP Pulse Ox 08/04/21 07:20 36.6 C 88 18 113/67 98 08/04/21 06:00 100 H 12 98 08/03/21 23:10 36.9 C 101 H 16 127/65 98 08/03/21 21:36 37 C 109 H 18 124/41 L 95 08/03/21 21:17 37 C 109 H 18 124/41 L 95 08/03/21 20:49 94 H 18 94/81 L 97 Laboratory Results 08/04/21 08/04/21 08/04/21 Range/Units 08:47 08:47 08:47 WBC 9.01 (4.8-10.8) K/uL RBC 3.57 L (4.7-6.1) M/uL Hgb 11.8 L (14.0-18.0) g/dL Hct 35.4 L (42-52) % MCV 99.2 (80-100) fL MCH 33.1 (25-34) pg MCHC 33.3 (32-36) g/dL RDW Std Deviation 52.7 H (36.4-46.3) fL RDW Coeff of Emily 14.9 H (11.5-14.5) % Plt Count 164 (130-400) K/uL MPV 9.7 (7.4-10.4) fL Neutrophils % (Manual) 39.5 % Lymphocytes % (Manual) 27.2 % Reactive Lymphs % (Man) 17.5 % Monocytes % (Manual) 14.9 % Basophils % (Manual) % Metamyelocytes % (Man) % Myelocytes % (Man) 0.9 % Neutrophils # (Manual) 3.56 (1.4-6.5) K/uL Total Absolute Neuts 3.56 (1.4-6.5) K/uL Lymphocytes # (Manual) 2.45 (1.2-3.4) K/uL Reactive Lymphs # 1.58 K/uL Total Abs Lymphocytes 4.03 H (1.2-3.4) K/uL Monocytes # (Manual) 1.34 H (0.11-0.59) K/uL Basophils # (Manual) (0-0.2) K/uL Metamyelocytes # (Man) (0-0) K/uL Myelocytes # (Manual) 0.08 H (0-0) K/uL RBC Morphology Unremarkable Polychromasia PT 11.8 (9.0-12.0) Seconds INR 1.2 H (0.9-1.1) Sodium 138 (136-145) mmol/L Potassium 3.9 (3.5-5.1) mmol/L Chloride 107 (98-107) mmol/L Carbon Dioxide 25 (21-32) mmol/L Anion Gap 6.0 (3-11) BUN 9 (7-18) mg/dl Creatinine 0.89 (0.6-1.4) mg/dl Est Cr Clr Drug Dosing 139.1 ml/min Est GFR ( Amer) 142.7 ml/min Est GFR (Non-Af Amer) 123.1 ml/min BUN/Creatinine Ratio 10.1 (10-20) Glucose 96 (70-99) mg/dl Calcium 9.3 (8.5-10.1) mg/dl Phosphorus (2.5-4.9) mg/dl Magnesium (1.8-2.4) mg/dl Total Bilirubin 6.2 H (0.2-1) mg/dl Direct Bilirubin (0-0.2) mg/dl AST 450 H (15-37) U/L ALT 693 H (12-78) U/L Alkaline Phosphatase 198 H (45-117) U/L C-Reactive Protein (0-0.29) mg/dl Total Protein 7.0 (6.4-8.2) gm/dl Albumin 2.8 L (3.4-5.0) gm/dl Globulin 4.2 H (2.5-4.0) gm/dl Albumin/Globulin Ratio 0.7 L (0.9-2) Lipase (73-393) U/L Procalcitonin (0-0.5) ng/ml Urine Color Urine Appearance (Clear) Urine pH (4.5-7.5) Ur Specific [place] (1.000-1.030) Urine Protein (Negative) Urine Glucose (UA) (Negative) Urine Ketones (Negative) Urine Blood (Negative) Urine Nitrite (Negative) Urine Bilirubin (Negative) Urine Urobilinogen (Negative) Ur Leukocyte Esterase (Negative) Urine WBC (Auto) (0-5) /hpf Urine RBC (Auto) (0-4) /hpf U Hyaline Cast (Auto) (0-5) /lpf U Epithel Cells (Auto) (0-5) /lpf Urine Bacteria (Auto) (Negative) Anaplasma Smear A. phagocytophilum DNA Babesia Smear Babesia microti DNA PCR Lyme Disease IgG Ab (Negative) Lyme Disease IgM Ab (Negative) COVID-19 Eval Order SARS-CoV-2 (PCR) (Negative) CMV IgM Ab CMV IgG Ab/TORCH EBV Capsid Ag IgG Ab EBV Capsid Ag IgM Ab EBV Nuclear Antigen Ab EBV Antibody Interp Hepatitis A IgM Ab Hep Bs Antigen (Neg) Hep B Core IgM Ab Hepatitis C Antibody (Neg) Monoscreen (Negative) HIV 1&2 Ab/P24 Ag 4thGn (Neg) 08/03/21 08/03/21 08/03/21 Range/Units 19:01 19:01 19:01 WBC (4.8-10.8) K/uL RBC (4.7-6.1) M/uL Hgb (14.0-18.0) g/dL Hct (42-52) % MCV (80-100) fL MCH (25-34) pg MCHC (32-36) g/dL RDW Std Deviation (36.4-46.3) fL RDW Coeff of Emily (11.5-14.5) % Plt Count (130-400) K/uL MPV (7.4-10.4) fL Neutrophils % (Manual) % Lymphocytes % (Manual) % Reactive Lymphs % (Man) % Monocytes % (Manual) % Basophils % (Manual) % Metamyelocytes % (Man) % Myelocytes % (Man) % Neutrophils # (Manual) (1.4-6.5) K/uL Total Absolute Neuts (1.4-6.5) K/uL Lymphocytes # (Manual) (1.2-3.4) K/uL Reactive Lymphs # K/uL Total Abs Lymphocytes (1.2-3.4) K/uL Monocytes # (Manual) (0.11-0.59) K/uL Basophils # (Manual) (0-0.2) K/uL Metamyelocytes # (Man) (0-0) K/uL Myelocytes # (Manual) (0-0) K/uL RBC Morphology Polychromasia PT (9.0-12.0) Seconds INR (0.9-1.1) Sodium (136-145) mmol/L Potassium (3.5-5.1) mmol/L Chloride (98-107) mmol/L Carbon Dioxide (21-32) mmol/L Anion Gap (3-11) BUN (7-18) mg/dl Creatinine (0.6-1.4) mg/dl Est Cr Clr Drug Dosing ml/min Est GFR ( Amer) ml/min Est GFR (Non-Af Amer) ml/min BUN/Creatinine Ratio (10-20) Glucose (70-99) mg/dl Calcium (8.5-10.1) mg/dl Phosphorus (2.5-4.9) mg/dl Magnesium (1.8-2.4) mg/dl Total Bilirubin (0.2-1) mg/dl Direct Bilirubin (0-0.2) mg/dl AST (15-37) U/L ALT (12-78) U/L Alkaline Phosphatase (45-117) U/L C-Reactive Protein 1.68 H (0-0.29) mg/dl Total Protein (6.4-8.2) gm/dl Albumin (3.4-5.0) gm/dl Globulin (2.5-4.0) gm/dl Albumin/Globulin Ratio (0.9-2) Lipase (73-393) U/L Procalcitonin 0.82 H (0-0.5) ng/ml Urine Color Urine Appearance (Clear) Urine pH (4.5-7.5) Ur Specific [place] (1.000-1.030) Urine Protein (Negative) Urine Glucose (UA) (Negative) Urine Ketones (Negative) Urine Blood (Negative) Urine Nitrite (Negative) Urine Bilirubin (Negative) Urine Urobilinogen (Negative) Ur Leukocyte Esterase (Negative) Urine WBC (Auto) (0-5) /hpf Urine RBC (Auto) (0-4) /hpf U Hyaline Cast (Auto) (0-5) /lpf U Epithel Cells (Auto) (0-5) /lpf Urine Bacteria (Auto) (Negative) Anaplasma Smear A. phagocytophilum DNA Babesia Smear Babesia microti DNA PCR Lyme Disease IgG Ab (Negative) Lyme Disease IgM Ab (Negative) COVID-19 Eval Order SARS-CoV-2 (PCR) (Negative) CMV IgM Ab CMV IgG Ab/TORCH EBV Capsid Ag IgG Ab EBV Capsid Ag IgM Ab EBV Nuclear Antigen Ab EBV Antibody Interp Hepatitis A IgM Ab Hep Bs Antigen (Neg) Hep B Core IgM Ab Hepatitis C Antibody (Neg) Monoscreen (Negative) HIV 1&2 Ab/P24 Ag 4thGn Neg (Neg) 08/03/21 08/03/21 08/03/21 Range/Units 19:01 19:01 19:01 WBC (4.8-10.8) K/uL RBC (4.7-6.1) M/uL Hgb (14.0-18.0) g/dL Hct (42-52) % MCV (80-100) fL MCH (25-34) pg MCHC (32-36) g/dL RDW Std Deviation (36.4-46.3) fL RDW Coeff of Emily (11.5-14.5) % Plt Count (130-400) K/uL MPV (7.4-10.4) fL Neutrophils % (Manual) % Lymphocytes % (Manual) % Reactive Lymphs % (Man) % Monocytes % (Manual) % Basophils % (Manual) % Metamyelocytes % (Man) % Myelocytes % (Man) % Neutrophils # (Manual) (1.4-6.5) K/uL Total Absolute Neuts (1.4-6.5) K/uL Lymphocytes # (Manual) (1.2-3.4) K/uL Reactive Lymphs # K/uL Total Abs Lymphocytes (1.2-3.4) K/uL Monocytes # (Manual) (0.11-0.59) K/uL Basophils # (Manual) (0-0.2) K/uL Metamyelocytes # (Man) (0-0) K/uL Myelocytes # (Manual) (0-0) K/uL RBC Morphology Polychromasia PT (9.0-12.0) Seconds INR (0.9-1.1) Sodium (136-145) mmol/L Potassium (3.5-5.1) mmol/L Chloride (98-107) mmol/L Carbon Dioxide (21-32) mmol/L Anion Gap (3-11) BUN (7-18) mg/dl Creatinine (0.6-1.4) mg/dl Est Cr Clr Drug Dosing ml/min Est GFR ( Amer) ml/min Est GFR (Non-Af Amer) ml/min BUN/Creatinine Ratio (10-20) Glucose (70-99) mg/dl Calcium (8.5-10.1) mg/dl Phosphorus (2.5-4.9) mg/dl Magnesium (1.8-2.4) mg/dl Total Bilirubin (0.2-1) mg/dl Direct Bilirubin (0-0.2) mg/dl AST (15-37) U/L ALT (12-78) U/L Alkaline Phosphatase (45-117) U/L C-Reactive Protein (0-0.29) mg/dl Total Protein (6.4-8.2) gm/dl Albumin (3.4-5.0) gm/dl Globulin (2.5-4.0) gm/dl Albumin/Globulin Ratio (0.9-2) Lipase (73-393) U/L Procalcitonin (0-0.5) ng/ml Urine Color Urine Appearance (Clear) Urine pH (4.5-7.5) Ur Specific [place] (1.000-1.030) Urine Protein (Negative) Urine Glucose (UA) (Negative) Urine Ketones (Negative) Urine Blood (Negative) Urine Nitrite (Negative) Urine Bilirubin (Negative) Urine Urobilinogen (Negative) Ur Leukocyte Esterase (Negative) Urine WBC (Auto) (0-5) /hpf Urine RBC (Auto) (0-4) /hpf U Hyaline Cast (Auto) (0-5) /lpf U Epithel Cells (Auto) (0-5) /lpf Urine Bacteria (Auto) (Negative) Anaplasma Smear A. phagocytophilum DNA Babesia Smear Babesia microti DNA PCR Lyme Disease IgG Ab (Negative) Lyme Disease IgM Ab (Negative) COVID-19 Eval Order SARS-CoV-2 (PCR) (Negative) CMV IgM Ab Pending CMV IgG Ab/TORCH Pending EBV Capsid Ag IgG Ab Cancelled EBV Capsid Ag IgM Ab Cancelled EBV Nuclear Antigen Ab Cancelled EBV Antibody Interp Cancelled Hepatitis A IgM Ab Pending Hep Bs Antigen Pending (Neg) Hep B Core IgM Ab Pending Hepatitis C Antibody (Neg) Monoscreen (Negative) HIV 1&2 Ab/P24 Ag 4thGn (Neg) 08/03/21 08/03/21 08/03/21 Range/Units 19:01 17:25 15:30 WBC (4.8-10.8) K/uL RBC (4.7-6.1) M/uL Hgb (14.0-18.0) g/dL Hct (42-52) % MCV (80-100) fL MCH (25-34) pg MCHC (32-36) g/dL RDW Std Deviation (36.4-46.3) fL RDW Coeff of Emily (11.5-14.5) % Plt Count (130-400) K/uL MPV (7.4-10.4) fL Neutrophils % (Manual) % Lymphocytes % (Manual) % Reactive Lymphs % (Man) % Monocytes % (Manual) % Basophils % (Manual) % Metamyelocytes % (Man) % Myelocytes % (Man) % Neutrophils # (Manual) (1.4-6.5) K/uL Total Absolute Neuts (1.4-6.5) K/uL Lymphocytes # (Manual) (1.2-3.4) K/uL Reactive Lymphs # K/uL Total Abs Lymphocytes (1.2-3.4) K/uL Monocytes # (Manual) (0.11-0.59) K/uL Basophils # (Manual) (0-0.2) K/uL Metamyelocytes # (Man) (0-0) K/uL Myelocytes # (Manual) (0-0) K/uL RBC Morphology Polychromasia PT (9.0-12.0) Seconds INR (0.9-1.1) Sodium (136-145) mmol/L Potassium (3.5-5.1) mmol/L Chloride (98-107) mmol/L Carbon Dioxide (21-32) mmol/L Anion Gap (3-11) BUN (7-18) mg/dl Creatinine (0.6-1.4) mg/dl Est Cr Clr Drug Dosing ml/min Est GFR ( Amer) ml/min Est GFR (Non-Af Amer) ml/min BUN/Creatinine Ratio (10-20) Glucose (70-99) mg/dl Calcium (8.5-10.1) mg/dl Phosphorus (2.5-4.9) mg/dl Magnesium (1.8-2.4) mg/dl Total Bilirubin (0.2-1) mg/dl Direct Bilirubin (0-0.2) mg/dl AST (15-37) U/L ALT (12-78) U/L Alkaline Phosphatase (45-117) U/L C-Reactive Protein (0-0.29) mg/dl Total Protein (6.4-8.2) gm/dl Albumin (3.4-5.0) gm/dl Globulin (2.5-4.0) gm/dl Albumin/Globulin Ratio (0.9-2) Lipase (73-393) U/L Procalcitonin (0-0.5) ng/ml Urine Color Dark Yellow Urine Appearance Clear (Clear) Urine pH 5.5 (4.5-7.5) Ur Specific [place] > 1.045 H (1.000-1.030) Urine Protein Negative (Negative) Urine Glucose (UA) Negative (Negative) Urine Ketones 1+ H (Negative) Urine Blood Negative (Negative) Urine Nitrite Positive A (Negative) Urine Bilirubin 3+ H (Negative) Urine Urobilinogen Positive H (Negative) Ur Leukocyte Esterase Trace H (Negative) Urine WBC (Auto) 1-5 (0-5) /hpf Urine RBC (Auto) 0-4 (0-4) /hpf U Hyaline Cast (Auto) 0 (0-5) /lpf U Epithel Cells (Auto) 0-5 (0-5) /lpf Urine Bacteria (Auto) Negative (Negative) Anaplasma Smear A. phagocytophilum DNA Babesia Smear Babesia microti DNA PCR Lyme Disease IgG Ab (Negative) Lyme Disease IgM Ab (Negative) COVID-19 Eval Order SARS-CoV-2 (PCR) NEGATIVE (Negative) CMV IgM Ab CMV IgG Ab/TORCH EBV Capsid Ag IgG Ab EBV Capsid Ag IgM Ab EBV Nuclear Antigen Ab EBV Antibody Interp Hepatitis A IgM Ab Hep Bs Antigen Prelim Pos A (Neg) Hep B Core IgM Ab Hepatitis C Antibody Neg (Neg) Monoscreen (Negative) HIV 1&2 Ab/P24 Ag 4thGn (Neg) 08/03/21 08/03/21 08/03/21 Range/Units 15:30 15:14 15:14 WBC (4.8-10.8) K/uL RBC (4.7-6.1) M/uL Hgb (14.0-18.0) g/dL Hct (42-52) % MCV (80-100) fL MCH (25-34) pg MCHC (32-36) g/dL RDW Std Deviation (36.4-46.3) fL RDW Coeff of Emily (11.5-14.5) % Plt Count (130-400) K/uL MPV (7.4-10.4) fL Neutrophils % (Manual) % Lymphocytes % (Manual) % Reactive Lymphs % (Man) % Monocytes % (Manual) % Basophils % (Manual) % Metamyelocytes % (Man) % Myelocytes % (Man) % Neutrophils # (Manual) (1.4-6.5) K/uL Total Absolute Neuts (1.4-6.5) K/uL Lymphocytes # (Manual) (1.2-3.4) K/uL Reactive Lymphs # K/uL Total Abs Lymphocytes (1.2-3.4) K/uL Monocytes # (Manual) (0.11-0.59) K/uL Basophils # (Manual) (0-0.2) K/uL Metamyelocytes # (Man) (0-0) K/uL Myelocytes # (Manual) (0-0) K/uL RBC Morphology Polychromasia PT (9.0-12.0) Seconds INR (0.9-1.1) Sodium (136-145) mmol/L Potassium (3.5-5.1) mmol/L Chloride (98-107) mmol/L Carbon Dioxide (21-32) mmol/L Anion Gap (3-11) BUN (7-18) mg/dl Creatinine (0.6-1.4) mg/dl Est Cr Clr Drug Dosing ml/min Est GFR ( Amer) ml/min Est GFR (Non-Af Amer) ml/min BUN/Creatinine Ratio (10-20) Glucose (70-99) mg/dl Calcium (8.5-10.1) mg/dl Phosphorus 3.4 (2.5-4.9) mg/dl Magnesium 2.2 (1.8-2.4) mg/dl Total Bilirubin (0.2-1) mg/dl Direct Bilirubin (0-0.2) mg/dl AST (15-37) U/L ALT (12-78) U/L Alkaline Phosphatase (45-117) U/L C-Reactive Protein (0-0.29) mg/dl Total Protein (6.4-8.2) gm/dl Albumin (3.4-5.0) gm/dl Globulin (2.5-4.0) gm/dl Albumin/Globulin Ratio (0.9-2) Lipase (73-393) U/L Procalcitonin (0-0.5) ng/ml Urine Color Urine Appearance (Clear) Urine pH (4.5-7.5) Ur Specific [place] (1.000-1.030) Urine Protein (Negative) Urine Glucose (UA) (Negative) Urine Ketones (Negative) Urine Blood (Negative) Urine Nitrite (Negative) Urine Bilirubin (Negative) Urine Urobilinogen (Negative) Ur Leukocyte Esterase (Negative) Urine WBC (Auto) (0-5) /hpf Urine RBC (Auto) (0-4) /hpf U Hyaline Cast (Auto) (0-5) /lpf U Epithel Cells (Auto) (0-5) /lpf Urine Bacteria (Auto) (Negative) Anaplasma Smear A. phagocytophilum DNA Babesia Smear Babesia microti DNA PCR Pending Lyme Disease IgG Ab (Negative) Lyme Disease IgM Ab (Negative) COVID-19 Eval Order Covid19 at [facility] SARS-CoV-2 (PCR) (Negative) CMV IgM Ab CMV IgG Ab/TORCH EBV Capsid Ag IgG Ab EBV Capsid Ag IgM Ab EBV Nuclear Antigen Ab EBV Antibody Interp Hepatitis A IgM Ab Hep Bs Antigen (Neg) Hep B Core IgM Ab Hepatitis C Antibody (Neg) Monoscreen (Negative) HIV 1&2 Ab/P24 Ag 4thGn (Neg) 08/03/21 08/03/21 08/03/21 Range/Units 15:14 15:14 15:14 WBC (4.8-10.8) K/uL RBC (4.7-6.1) M/uL Hgb (14.0-18.0) g/dL Hct (42-52) % MCV (80-100) fL MCH (25-34) pg MCHC (32-36) g/dL RDW Std Deviation (36.4-46.3) fL RDW Coeff of Emily (11.5-14.5) % Plt Count (130-400) K/uL MPV (7.4-10.4) fL Neutrophils % (Manual) % Lymphocytes % (Manual) % Reactive Lymphs % (Man) % Monocytes % (Manual) % Basophils % (Manual) % Metamyelocytes % (Man) % Myelocytes % (Man) % Neutrophils # (Manual) (1.4-6.5) K/uL Total Absolute Neuts (1.4-6.5) K/uL Lymphocytes # (Manual) (1.2-3.4) K/uL Reactive Lymphs # K/uL Total Abs Lymphocytes (1.2-3.4) K/uL Monocytes # (Manual) (0.11-0.59) K/uL Basophils # (Manual) (0-0.2) K/uL Metamyelocytes # (Man) (0-0) K/uL Myelocytes # (Manual) (0-0) K/uL RBC Morphology Polychromasia PT 11.7 (9.0-12.0) Seconds INR 1.2 H (0.9-1.1) Sodium (136-145) mmol/L Potassium (3.5-5.1) mmol/L Chloride (98-107) mmol/L Carbon Dioxide (21-32) mmol/L Anion Gap (3-11) BUN (7-18) mg/dl Creatinine (0.6-1.4) mg/dl Est Cr Clr Drug Dosing ml/min Est GFR ( Amer) ml/min Est GFR (Non-Af Amer) ml/min BUN/Creatinine Ratio (10-20) Glucose (70-99) mg/dl Calcium (8.5-10.1) mg/dl Phosphorus (2.5-4.9) mg/dl Magnesium (1.8-2.4) mg/dl Total Bilirubin (0.2-1) mg/dl Direct Bilirubin (0-0.2) mg/dl AST (15-37) U/L ALT (12-78) U/L Alkaline Phosphatase (45-117) U/L C-Reactive Protein (0-0.29) mg/dl Total Protein (6.4-8.2) gm/dl Albumin (3.4-5.0) gm/dl Globulin (2.5-4.0) gm/dl Albumin/Globulin Ratio (0.9-2) Lipase (73-393) U/L Procalcitonin (0-0.5) ng/ml Urine Color Urine Appearance (Clear) Urine pH (4.5-7.5) Ur Specific [place] (1.000-1.030) Urine Protein (Negative) Urine Glucose (UA) (Negative) Urine Ketones (Negative) Urine Blood (Negative) Urine Nitrite (Negative) Urine Bilirubin (Negative) Urine Urobilinogen (Negative) Ur Leukocyte Esterase (Negative) Urine WBC (Auto) (0-5) /hpf Urine RBC (Auto) (0-4) /hpf U Hyaline Cast (Auto) (0-5) /lpf U Epithel Cells (Auto) (0-5) /lpf Urine Bacteria (Auto) (Negative) Anaplasma Smear A. phagocytophilum DNA Pending Babesia Smear Babesia microti DNA PCR Lyme Disease IgG Ab Negative (Negative) Lyme Disease IgM Ab Negative (Negative) COVID-19 Eval Order SARS-CoV-2 (PCR) (Negative) CMV IgM Ab CMV IgG Ab/TORCH EBV Capsid Ag IgG Ab EBV Capsid Ag IgM Ab EBV Nuclear Antigen Ab EBV Antibody Interp Hepatitis A IgM Ab Hep Bs Antigen (Neg) Hep B Core IgM Ab Hepatitis C Antibody (Neg) Monoscreen Positive A (Negative) HIV 1&2 Ab/P24 Ag 4thGn (Neg) 08/03/21 08/03/21 08/03/21 Range/Units 15:07 15:07 15:07 WBC 12.82 H (4.8-10.8) K/uL RBC 3.94 L (4.7-6.1) M/uL Hgb 13.4 L (14.0-18.0) g/dL Hct 39.0 L (42-52) % MCV 99.0 (80-100) fL MCH 34.0 (25-34) pg MCHC 34.4 (32-36) g/dL RDW Std Deviation 50.5 H (36.4-46.3) fL RDW Coeff of Emily 14.3 (11.5-14.5) % Plt Count 188 (130-400) K/uL MPV 9.7 (7.4-10.4) fL Neutrophils % (Manual) 39.3 % Lymphocytes % (Manual) 13.4 % Reactive Lymphs % (Man) 34.8 % Monocytes % (Manual) 8.9 % Basophils % (Manual) 0.9 % Metamyelocytes % (Man) 1.8 % Myelocytes % (Man) 0.9 % Neutrophils # (Manual) 5.04 (1.4-6.5) K/uL Total Absolute Neuts 5.04 (1.4-6.5) K/uL Lymphocytes # (Manual) 1.72 (1.2-3.4) K/uL Reactive Lymphs # 4.46 K/uL Total Abs Lymphocytes 6.18 H (1.2-3.4) K/uL Monocytes # (Manual) 1.14 H (0.11-0.59) K/uL Basophils # (Manual) 0.12 (0-0.2) K/uL Metamyelocytes # (Man) 0.23 H (0-0) K/uL Myelocytes # (Manual) 0.12 H (0-0) K/uL RBC Morphology Polychromasia 1+ PT (9.0-12.0) Seconds INR (0.9-1.1) Sodium 134 L (136-145) mmol/L Potassium 3.6 (3.5-5.1) mmol/L Chloride 102 (98-107) mmol/L Carbon Dioxide 24 (21-32) mmol/L Anion Gap 9.0 (3-11) BUN 13 (7-18) mg/dl Creatinine 1.14 (0.6-1.4) mg/dl Est Cr Clr Drug Dosing 106.1 ml/min Est GFR ( Amer) 106.7 ml/min Est GFR (Non-Af Amer) 92.1 ml/min BUN/Creatinine Ratio 11.4 (10-20) Glucose 104 H (70-99) mg/dl Calcium 9.6 (8.5-10.1) mg/dl Phosphorus (2.5-4.9) mg/dl Magnesium (1.8-2.4) mg/dl Total Bilirubin 10.2 H (0.2-1) mg/dl Direct Bilirubin 7.5 H (0-0.2) mg/dl AST 423 H (15-37) U/L ALT 686 H (12-78) U/L Alkaline Phosphatase 230 H (45-117) U/L C-Reactive Protein (0-0.29) mg/dl Total Protein 8.3 H (6.4-8.2) gm/dl Albumin 3.6 (3.4-5.0) gm/dl Globulin 4.7 H (2.5-4.0) gm/dl Albumin/Globulin Ratio 0.8 L (0.9-2) Lipase 247 (73-393) U/L Procalcitonin (0-0.5) ng/ml Urine Color Urine Appearance (Clear) Urine pH (4.5-7.5) Ur Specific [place] (1.000-1.030) Urine Protein (Negative) Urine Glucose (UA) (Negative) Urine Ketones (Negative) Urine Blood (Negative) Urine Nitrite (Negative) Urine Bilirubin (Negative) Urine Urobilinogen (Negative) Ur Leukocyte Esterase (Negative) Urine WBC (Auto) (0-5) /hpf Urine RBC (Auto) (0-4) /hpf U Hyaline Cast (Auto) (0-5) /lpf U Epithel Cells (Auto) (0-5) /lpf Urine Bacteria (Auto) (Negative) Anaplasma Smear See Comment A. phagocytophilum DNA Babesia Smear See Comment Babesia microti DNA PCR Lyme Disease IgG Ab (Negative) Lyme Disease IgM Ab (Negative) COVID-19 Eval Order SARS-CoV-2 (PCR) (Negative) CMV IgM Ab CMV IgG Ab/TORCH EBV Capsid Ag IgG Ab EBV Capsid Ag IgM Ab EBV Nuclear Antigen Ab EBV Antibody Interp Hepatitis A IgM Ab Hep Bs Antigen (Neg) Hep B Core IgM Ab Hepatitis C Antibody (Neg) Monoscreen (Negative) HIV 1&2 Ab/P24 Ag 4thGn (Neg) PG Care Time/CCT Total # of Minutes Spent Total Time Spent with Patient: Total time spent is greater than 50% in coordination of care (as documented) at patient's floor/unit and/or counseling patient: Coding Level of Care Code 64910 Subseq Hosp Care Lvl 2 Diagnoses Transaminitis R74.01 Direct hyperbilirubinemia E80.6 Infectious mononucleosis B27.90 Hyponatremia E87.1 Acute hepatitis B17.9
[2021-08-04 08:59] LABS: Hematocrit (blood only) 35.4 % (42-52); Hemoglobin 11.8 g/dL (14.0-18.0); Mean Corpuscular Hemoglobin 33.1 pg (25-34); Mean Corpuscular Hgb Conc 33.3 g/dL (32-36); Mean Corpuscular Volume 99.2 fL (80-100); Mean Platelet Volume 9.7 fL (7.4-10.4); Platelet Count 164 K/uL (130-400); RDW Coefficient of Variation 14.9 % (11.5-14.5); RDW Standard Deviation 52.7 fL (36.4-46.3); Red Blood Count 3.57 M/uL (4.7-6.1); White Blood Count 9.01 K/uL (4.8-10.8)
[2021-08-04 09:07] LABS: INR 1.2 (0.9-1.1); Prothrombin Time 11.8 Seconds (9.0-12.0)
--- NOTE | 2021-08-04 09:27 | Gastrointestinal Consultation ---
Date of Consultation August 04, 2021 Assessment & Plan (1) Acute hepatitis: The patient is a very pleasant 20-year-old male who presented to the emergency department and was subsequently admitted due to painless jaundice with elevation of liver function testing and positive Monospot. CT-A/P demonstrating moderate hepatosplenomegaly without biliary ductal dilatation. Negative Anaplasma smear, Lyme immunoglobulins negative, Covid negative. Suspect that his clinical appearance is secondary to infectious mononucleosis. Subsequently noted to have preliminarily positive hepatitis B surface antigen. Concerns for acute hepatitis B infection. Hep B core IgM testing is pending. HIV negative. Hep C and Hep A pending. Supportive care measures are indicated at this time. Discussed complete alcohol avoidance with the patient as well as sport activities. Patient will need outpatient follow-up to monitor LFTs to return to normal and cleared HBsAg x 2. The patient is on a biologic for Psoriasis. Case reviewed with Dr. Peguero who will round on the patient later this afternoon. Please refer to supervising physician addendum for further recommendations. (2) Infectious mononucleosis: see above Supervising Physician Co-Signing Physician Notes I interviewed and examined the patient and reviewed the medical record, with the following observations: Subjective: Patient states that he received a hepatitis vaccine in the past, not sure whether this was A or B, serologies still pending. HBsAg is positive, consistent with acute or chronic infection, not vaccination, other serologies pending Physical Examination: Chart Review: This case was reviewed with the advanced practice provider I agree with the assessment as outlined in this consultation, with the following observations: Clinicaly this is most consistent with acute infectious mononucleosis and chronic Hepatitis B infection. Bilirubin elevation represents cholestasis and not biliary obstruction, no further evaluation for obstruction is indicated. I agree with the plan of care as outlined in this consultation, with the following changes and/or additions: No specific treatment, just general support and observation. I agree with recommendations outlined above. History of Present Illness Attending Physician: Ryan Mac History of Present Illness The patient is a pleasant 20-year-old male with past medical history to include psoriasis who presented to the emergency department with painless jaundice 08/03/2021 and was subsequently admitted due to elevated LFTs and positive mononucleosis. GI was consulted due to these findings as well as a preliminary with a positive hepatitis B surface antigen. On exam/interview today, the patient reports that he had sick contact about 6 weeks ago with no mono. He denies any specific abdominal pain. He has been having difficulty tolerating foods or liquids last few days and is just been feeling weak and nauseated. Reports that he has a very sore throat. Positive nausea. Denies vomiting. No fevers have been noted. He has been moving his bowels daily without difficulty. Denies blood or melena in stool. Denies any urinary frequency or other concerns. He is a lifetime non-smoker. Denies alcohol intake. Denies use of recreational drugs including marijuana. He lives at home when not at college with his parents in [place]. 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 He is very active physically playing baseball and weight lifting. Allergies Allergy/AdvReac Type Severity Reaction Status Date / Time No Known Allergies Allergy Unverified 08/03/21 16:11 Home Medications Medication Instructions Recorded Confirmed Type fexofenadine-pseudoephedrine ER 1 tab PO QAM 08/03/21 08/03/21 History 180 mg-240 mg tablet,ext.release 24 hr Patient History Medical History (Updated 08/04/21 @ 06:21 by Vasyl Pringle) Psoriasis Surgical History (Updated 08/04/21 @ 06:17 by Vasyl Pringle) No pertinent past surgical history Family History Other Family history non-contributory Social History Smoking Status: Never smoker Do You Dip or Chew Tobacco: No; Hx Alcohol Use: No Hx Substance Use: No Preferred Language: Italian Communication Ability: Effective 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 Beliefs That Will Affect Care: None marital status: Single Current Living Situation: Other Current Living Situation Comment: student at [employer] Other Information That Helps Us Care for You: No Feels Safe at Home: Yes Safety Concerns: Feels Safe At This Time Assistive Devices: None Review of Systems Review of Systems: All systems reviewed & are unremarkable except as noted in Subjective Physical Exam Constitutional: WD/WN, vitals as above Respiratory: normal respiratory effort, lungs clear to auscultation Cardiovascular: RRR, no murmur, no edema Gastrointestinal (Abdomen): Inspection/Auscultation: abdomen normal to inspection and normal bowel sounds; abdomen not distended Percussion/Palpa tion: abdomen soft and + hepatosplenomegaly; abdomen nontender, no guarding and abdomen not rigid Skin: + jaundice Psychiatric: A+Ox3, euthymic affect Results & Data ([facility]) Vital Signs (Past 12 Hours) Vital Signs Temp Pulse Resp BP Pulse Ox 08/04/21 07:20 36.6 C 88 18 113/67 98 08/04/21 06:00 100 H 12 98 08/03/21 23:10 36.9 C 101 H 16 127/65 98 08/03/21 21:36 37 C 109 H 18 124/41 L 95 08/03/21 21:17 37 C 109 H 18 124/41 L 95 Laboratory Results Laboratory Results - last 24 hr 08/03/21 08/03/21 08/03/21 15:07 15:07 15:07 WBC 12.82 H RBC 3.94 L Hgb 13.4 L Hct 39.0 L MCV 99.0 MCH 34.0 MCHC 34.4 RDW Std Deviation 50.5 H RDW Coeff of Emily 14.3 Plt Count 188 MPV 9.7 Neutrophils % (Manual) 39.3 Lymphocytes % (Manual) 13.4 Reactive Lymphs % (Man) 34.8 Monocytes % (Manual) 8.9 Basophils % (Manual) 0.9 Metamyelocytes % (Man) 1.8 Myelocytes % (Man) 0.9 Neutrophils # (Manual) 5.04 Total Absolute Neuts 5.04 Lymphocytes # (Manual) 1.72 Reactive Lymphs # 4.46 Total Abs Lymphocytes 6.18 H Monocytes # (Manual) 1.14 H Basophils # (Manual) 0.12 Metamyelocytes # (Man) 0.23 H Myelocytes # (Manual) 0.12 H Polychromasia 1+ PT INR Sodium 134 L Potassium 3.6 Chloride 102 Carbon Dioxide 24 Anion Gap 9.0 BUN 13 Creatinine 1.14 Est Cr Clr Drug Dosing 106.1 Est GFR ( Amer) 106.7 Est GFR (Non-Af Amer) 92.1 BUN/Creatinine Ratio 11.4 Glucose 104 H Calcium 9.6 Phosphorus Magnesium Total Bilirubin 10.2 H Direct Bilirubin 7.5 H AST 423 H ALT 686 H Alkaline Phosphatase 230 H C-Reactive Protein Total Protein 8.3 H Albumin 3.6 Globulin 4.7 H Albumin/Globulin Ratio 0.8 L Lipase 247 Procalcitonin Urine Color Urine Appearance Urine pH Ur Specific [place] Urine Protein Urine Glucose (UA) Urine Ketones Urine Blood Urine Nitrite Urine Bilirubin Urine Urobilinogen Ur Leukocyte Esterase Urine WBC (Auto) Urine RBC (Auto) U Hyaline Cast (Auto) U Epithel Cells (Auto) Urine Bacteria (Auto) Anaplasma Smear See Comment A. phagocytophilum DNA Babesia Smear See Comment Babesia microti DNA PCR Lyme Disease IgG Ab Lyme Disease IgM Ab COVID-19 Eval Order SARS-CoV-2 (PCR) CMV IgM Ab CMV IgG Ab/TORCH EBV Capsid Ag IgG Ab EBV Capsid Ag IgM Ab EBV Nuclear Antigen Ab EBV Antibody Interp Hepatitis A IgM Ab Hep Bs Antigen Hep B Core IgM Ab Hepatitis C Antibody Monoscreen HIV 1&2 Ab/P24 Ag 4thGn 08/03/21 08/03/21 08/03/21 15:14 15:14 15:14 WBC RBC Hgb Hct MCV MCH MCHC RDW Std Deviation RDW Coeff of Emily Plt Count MPV Neutrophils % (Manual) Lymphocytes % (Manual) Reactive Lymphs % (Man) Monocytes % (Manual) Basophils % (Manual) Metamyelocytes % (Man) Myelocytes % (Man) Neutrophils # (Manual) Total Absolute Neuts Lymphocytes # (Manual) Reactive Lymphs # Total Abs Lymphocytes Monocytes # (Manual) Basophils # (Manual) Metamyelocytes # (Man) Myelocytes # (Manual) Polychromasia PT 11.7 INR 1.2 H Sodium Potassium Chloride Carbon Dioxide Anion Gap BUN Creatinine Est Cr Clr Drug Dosing Est GFR ( Amer) Est GFR (Non-Af Amer) BUN/Creatinine Ratio Glucose Calcium Phosphorus Magnesium Total Bilirubin Direct Bilirubin AST ALT Alkaline Phosphatase C-Reactive Protein Total Protein Albumin Globulin Albumin/Globulin Ratio Lipase Procalcitonin Urine Color Urine Appearance Urine pH Ur Specific [place] Urine Protein Urine Glucose (UA) Urine Ketones Urine Blood Urine Nitrite Urine Bilirubin Urine Urobilinogen Ur Leukocyte Esterase Urine WBC (Auto) Urine RBC (Auto) U Hyaline Cast (Auto) U Epithel Cells (Auto) Urine Bacteria (Auto) Anaplasma Smear A. phagocytophilum DNA Pending Babesia Smear Babesia microti DNA PCR Lyme Disease IgG Ab Negative Lyme Disease IgM Ab Negative COVID-19 Eval Order SARS-CoV-2 (PCR) CMV IgM Ab CMV IgG Ab/TORCH EBV Capsid Ag IgG Ab EBV Capsid Ag IgM Ab EBV Nuclear Antigen Ab EBV Antibody Interp Hepatitis A IgM Ab Hep Bs Antigen Hep B Core IgM Ab Hepatitis C Antibody Monoscreen Positive A HIV 1&2 Ab/P24 Ag 4thGn 08/03/21 08/03/21 08/03/21 15:14 15:14 15:30 WBC RBC Hgb Hct MCV MCH MCHC RDW Std Deviation RDW Coeff of Emily Plt Count MPV Neutrophils % (Manual) Lymphocytes % (Manual) Reactive Lymphs % (Man) Monocytes % (Manual) Basophils % (Manual) Metamyelocytes % (Man) Myelocytes % (Man) Neutrophils # (Manual) Total Absolute Neuts Lymphocytes # (Manual) Reactive Lymphs # Total Abs Lymphocytes Monocytes # (Manual) Basophils # (Manual) Metamyelocytes # (Man) Myelocytes # (Manual) Polychromasia PT INR Sodium Potassium Chloride Carbon Dioxide Anion Gap BUN Creatinine Est Cr Clr Drug Dosing Est GFR ( Amer) Est GFR (Non-Af Amer) BUN/Creatinine Ratio Glucose Calcium Phosphorus 3.4 Magnesium 2.2 Total Bilirubin Direct Bilirubin AST ALT Alkaline Phosphatase C-Reactive Protein Total Protein Albumin Globulin Albumin/Globulin Ratio Lipase Procalcitonin Urine Color Urine Appearance Urine pH Ur Specific [place] Urine Protein Urine Glucose (UA) Urine Ketones Urine Blood Urine Nitrite Urine Bilirubin Urine Urobilinogen Ur Leukocyte Esterase Urine WBC (Auto) Urine RBC (Auto) U Hyaline Cast (Auto) U Epithel Cells (Auto) Urine Bacteria (Auto) Anaplasma Smear A. phagocytophilum DNA Babesia Smear Babesia microti DNA PCR Pending Lyme Disease IgG Ab Lyme Disease IgM Ab COVID-19 Eval Order Covid19 at [facility] SARS-CoV-2 (PCR) CMV IgM Ab CMV IgG Ab/TORCH EBV Capsid Ag IgG Ab EBV Capsid Ag IgM Ab EBV Nuclear Antigen Ab EBV Antibody Interp Hepatitis A IgM Ab Hep Bs Antigen Hep B Core IgM Ab Hepatitis C Antibody Monoscreen HIV 1&2 Ab/P24 Ag 4thGn 08/03/21 08/03/21 08/03/21 15:30 17:25 19:01 WBC RBC Hgb Hct MCV MCH MCHC RDW Std Deviation RDW Coeff of Emily Plt Count MPV Neutrophils % (Manual) Lymphocytes % (Manual) Reactive Lymphs % (Man) Monocytes % (Manual) Basophils % (Manual) Metamyelocytes % (Man) Myelocytes % (Man) Neutrophils # (Manual) Total Absolute Neuts Lymphocytes # (Manual) Reactive Lymphs # Total Abs Lymphocytes Monocytes # (Manual) Basophils # (Manual) Metamyelocytes # (Man) Myelocytes # (Manual) Polychromasia PT INR Sodium Potassium Chloride Carbon Dioxide Anion Gap BUN Creatinine Est Cr Clr Drug Dosing Est GFR ( Amer) Est GFR (Non-Af Amer) BUN/Creatinine Ratio Glucose Calcium Phosphorus Magnesium Total Bilirubin Direct Bilirubin AST ALT Alkaline Phosphatase C-Reactive Protein Total Protein Albumin Globulin Albumin/Globulin Ratio Lipase Procalcitonin Urine Color Dark Yellow Urine Appearance Clear Urine pH 5.5 Ur Specific [place] > 1.045 H Urine Protein Negative Urine Glucose (UA) Negative Urine Ketones 1+ H Urine Blood Negative Urine Nitrite Positive A Urine Bilirubin 3+ H Urine Urobilinogen Positive H Ur Leukocyte Esterase Trace H Urine WBC (Auto) 1-5 Urine RBC (Auto) 0-4 U Hyaline Cast (Auto) 0 U Epithel Cells (Auto) 0-5 Urine Bacteria (Auto) Negative Anaplasma Smear A. phagocytophilum DNA Babesia Smear Babesia microti DNA PCR Lyme Disease IgG Ab Lyme Disease IgM Ab COVID-19 Eval Order SARS-CoV-2 (PCR) NEGATIVE CMV IgM Ab CMV IgG Ab/TORCH EBV Capsid Ag IgG Ab EBV Capsid Ag IgM Ab EBV Nuclear Antigen Ab EBV Antibody Interp Hepatitis A IgM Ab Hep Bs Antigen Prelim Pos A Hep B Core IgM Ab Hepatitis C Antibody Neg Monoscreen HIV 1&2 Ab/P24 Ag 4thGn 08/03/21 08/03/21 08/03/21 19:01 19:01 19:01 WBC RBC Hgb Hct MCV MCH MCHC RDW Std Deviation RDW Coeff of Emily Plt Count MPV Neutrophils % (Manual) Lymphocytes % (Manual) Reactive Lymphs % (Man) Monocytes % (Manual) Basophils % (Manual) Metamyelocytes % (Man) Myelocytes % (Man) Neutrophils # (Manual) Total Absolute Neuts Lymphocytes # (Manual) Reactive Lymphs # Total Abs Lymphocytes Monocytes # (Manual) Basophils # (Manual) Metamyelocytes # (Man) Myelocytes # (Manual) Polychromasia PT INR Sodium Potassium Chloride Carbon Dioxide Anion Gap BUN Creatinine Est Cr Clr Drug Dosing Est GFR ( Amer) Est GFR (Non-Af Amer) BUN/Creatinine Ratio Glucose Calcium Phosphorus Magnesium Total Bilirubin Direct Bilirubin AST ALT Alkaline Phosphatase C-Reactive Protein Total Protein Albumin Globulin Albumin/Globulin Ratio Lipase Procalcitonin Urine Color Urine Appearance Urine pH Ur Specific [place] Urine Protein Urine Glucose (UA) Urine Ketones Urine Blood Urine Nitrite Urine Bilirubin Urine Urobilinogen Ur Leukocyte Esterase Urine WBC (Auto) Urine RBC (Auto) U Hyaline Cast (Auto) U Epithel Cells (Auto) Urine Bacteria (Auto) Anaplasma Smear A. phagocytophilum DNA Babesia Smear Babesia microti DNA PCR Lyme Disease IgG Ab Lyme Disease IgM Ab COVID-19 Eval Order SARS-CoV-2 (PCR) CMV IgM Ab Pending CMV IgG Ab/TORCH Pending EBV Capsid Ag IgG Ab Cancelled EBV Capsid Ag IgM Ab Cancelled EBV Nuclear Antigen Ab Cancelled EBV Antibody Interp Cancelled Hepatitis A IgM Ab Pending Hep Bs Antigen Pending Hep B Core IgM Ab Pending Hepatitis C Antibody Monoscreen HIV 1&2 Ab/P24 Ag 4thGn 08/03/21 08/03/21 08/03/21 19:01 19:01 19:01 WBC RBC Hgb Hct MCV MCH MCHC RDW Std Deviation RDW Coeff of Emily Plt Count MPV Neutrophils % (Manual) Lymphocytes % (Manual) Reactive Lymphs % (Man) Monocytes % (Manual) Basophils % (Manual) Metamyelocytes % (Man) Myelocytes % (Man) Neutrophils # (Manual) Total Absolute Neuts Lymphocytes # (Manual) Reactive Lymphs # Total Abs Lymphocytes Monocytes # (Manual) Basophils # (Manual) Metamyelocytes # (Man) Myelocytes # (Manual) Polychromasia PT INR Sodium Potassium Chloride Carbon Dioxide Anion Gap BUN Creatinine Est Cr Clr Drug Dosing Est GFR ( Amer) Est GFR (Non-Af Amer) BUN/Creatinine Ratio Glucose Calcium Phosphorus Magnesium Total Bilirubin Direct Bilirubin AST ALT Alkaline Phosphatase C-Reactive Protein 1.68 H Total Protein Albumin Globulin Albumin/Globulin Ratio Lipase Procalcitonin 0.82 H Urine Color Urine Appearance Urine pH Ur Specific [place] Urine Protein Urine Glucose (UA) Urine Ketones Urine Blood Urine Nitrite Urine Bilirubin Urine Urobilinogen Ur Leukocyte Esterase Urine WBC (Auto) Urine RBC (Auto) U Hyaline Cast (Auto) U Epithel Cells (Auto) Urine Bacteria (Auto) Anaplasma Smear A. phagocytophilum DNA Babesia Smear Babesia microti DNA PCR Lyme Disease IgG Ab Lyme Disease IgM Ab COVID-19 Eval Order SARS-CoV-2 (PCR) CMV IgM Ab CMV IgG Ab/TORCH EBV Capsid Ag IgG Ab EBV Capsid Ag IgM Ab EBV Nuclear Antigen Ab EBV Antibody Interp Hepatitis A IgM Ab Hep Bs Antigen Hep B Core IgM Ab Hepatitis C Antibody Monoscreen HIV 1&2 Ab/P24 Ag 4thGn Neg 08/04/21 08/04/21 08/04/21 08:47 08:47 08:47 WBC 9.01 RBC 3.57 L Hgb 11.8 L Hct 35.4 L MCV 99.2 MCH 33.1 MCHC 33.3 RDW Std Deviation 52.7 H RDW Coeff of Emily 14.9 H Plt Count 164 MPV 9.7 Neutrophils % (Manual) Lymphocytes % (Manual) Reactive Lymphs % (Man) Monocytes % (Manual) Basophils % (Manual) Metamyelocytes % (Man) Myelocytes % (Man) Neutrophils # (Manual) Total Absolute Neuts Lymphocytes # (Manual) Reactive Lymphs # Total Abs Lymphocytes Monocytes # (Manual) Basophils # (Manual) Metamyelocytes # (Man) Myelocytes # (Manual) Polychromasia PT 11.8 INR 1.2 H Sodium Pending Potassium Pending Chloride Pending Carbon Dioxide Pending Anion Gap Pending BUN Pending Creatinine Pending Est Cr Clr Drug Dosing Pending Est GFR ( Amer) Pending Est GFR (Non-Af Amer) Pending BUN/Creatinine Ratio Pending Glucose Pending Calcium Pending Phosphorus Magnesium Total Bilirubin Pending Direct Bilirubin AST Pending ALT Pending Alkaline Phosphatase Pending C-Reactive Protein Total Protein Pending Albumin Pending Globulin Pending Albumin/Globulin Ratio Pending Lipase Procalcitonin Urine Color Urine Appearance Urine pH Ur Specific [place] Urine Protein Urine Glucose (UA) Urine Ketones Urine Blood Urine Nitrite Urine Bilirubin Urine Urobilinogen Ur Leukocyte Esterase Urine WBC (Auto) Urine RBC (Auto) U Hyaline Cast (Auto) U Epithel Cells (Auto) Urine Bacteria (Auto) Anaplasma Smear A. phagocytophilum DNA Babesia Smear Babesia microti DNA PCR Lyme Disease IgG Ab Lyme Disease IgM Ab COVID-19 Eval Order SARS-CoV-2 (PCR) CMV IgM Ab CMV IgG Ab/TORCH EBV Capsid Ag IgG Ab EBV Capsid Ag IgM Ab EBV Nuclear Antigen Ab EBV Antibody Interp Hepatitis A IgM Ab Hep Bs Antigen Hep B Core IgM Ab Hepatitis C Antibody Monoscreen HIV 1&2 Ab/P24 Ag 4thGn
[2021-08-04 09:45] LABS: ALC (manual) 4.03 K/uL (1.2-3.4); ANC (manual) 3.56 K/uL (1.4-6.5); Lymphocytes # (manual) 2.45 K/uL (1.2-3.4); Lymphocytes % (manual) 27.2 %; Monocytes # (manual) 1.34 K/uL (0.11-0.59); Monocytes % (manual) 14.9 %; Myelocytes # (manual) 0.08 K/uL (0-0); Myelocytes % (manual) 0.9 %; Neutrophils # (manual) 3.56 K/uL (1.4-6.5); Neutrophils % (manual) 39.5 %; RBC Morphology Unremarkable; Reactive Lymphocytes # (manual) 1.58 K/uL; Reactive Lymphocytes % (manual) 17.5 %
[2021-08-04 09:57] LABS: Albumin Globulin Ratio 0.7 (0.9-2); Albumin Level 2.8 gm/dl (3.4-5.0); BUN Creatinine Ratio 10.1 (10-20); Bilirubin,Total 6.2 mg/dl (0.2-1); Calcium 9.3 mg/dl (8.5-10.1); Creatinine Clr Calc Pharmacy 139.1 ml/min; Est GFR (African American) 142.7 ml/min; Est GFR (Non-African American) 123.1 ml/min; Globulin 4.2 gm/dl (2.5-4.0); Potassium 3.9 mmol/L (3.5-5.1)
[2021-08-04] MEDS ORDERED: COUGH DROP (SUGAR FREE) LOZ 24 LOZ/1 BOX BUCCAL PRN (16:10)
[2021-08-05 06:45] LABS: Hematocrit (blood only) 35.5 % (42-52); Mean Corpuscular Hemoglobin 33.2 pg (25-34); Mean Corpuscular Hgb Conc 33.8 g/dL (32-36); Mean Corpuscular Volume 98.3 fL (80-100); Mean Platelet Volume 9.8 fL (7.4-10.4); Platelet Count 206 K/uL (130-400); RDW Coefficient of Variation 15.1 % (11.5-14.5); RDW Standard Deviation 53.2 fL (36.4-46.3); Red Blood Count 3.61 M/uL (4.7-6.1); White Blood Count 10.56 K/uL (4.8-10.8)
[2021-08-05 06:51] LABS: INR 1.1 (0.9-1.1); Prothrombin Time 11.5 Seconds (9.0-12.0)
[2021-08-05 07:22] LABS: Albumin Level 2.9 gm/dl (3.4-5.0); BUN Creatinine Ratio 10.6 (10-20); Calcium 9.2 mg/dl (8.5-10.1); Creatinine Clr Calc Pharmacy 127.7 ml/min; Est GFR (African American) 129.7 ml/min; Est GFR (Non-African American) 111.9 ml/min; Potassium 4.1 mmol/L (3.5-5.1)
[2021-08-05 07:26] LABS: Bilirubin,Total 3.5 mg/dl (0.2-1); Total Protein 7.2 gm/dl (6.4-8.2)
[2021-08-05 08:06] LABS: HBSAG NON-REACTIVE (NON-REACTIVE); Hepatitis A Antibody IgM NON-REACTIVE (NON-REACTIVE); Hepatitis B Core Antibody IgM NON-REACTIVE (NON-REACTIVE)
--- NOTE | 2021-08-05 08:29 | Hospitalist Progress Note ---
Date of Service August 05, 2021 Assessment & Plan (1) Transaminitis: Plan: 20-year-old male without significant past medical history presented for nausea and jaundice (for several days until told by co-workers). Occ Etoh use Subsequently found to have evidence of transaminitis, direct hyperbilirubinemia, and positive Monospot. COVID [address]-A/P demonstrating moderate hepatosplenomegaly without biliary ductal dilatation WBC 13, lymphocytic predominance-- > wnl on repeat On IVF LR @125cc/hr --> Now tolerating diet and can d/c TB 10.2--> 6.2 --> 3.5 AST 423 --> 450 --> 364 ALT 686--> 693 --> 760 ALP 230--> 198 --> 231 Anaplasmosis smear negative, PCR pending, Lyme Negative, babesia pending HIV, , CMV, Hepatitis panel pending --> HepBsAg positive on preliminary but NON-REACTIVE on panel HIV negative --> Should be noted patient on Otezla for hx Psoriasis and would states he had lab testing prior to start but unsure what labs those were. Given insurance wouldn't approve without would suspect should have been checked in past GI consulted given acute hepatitis, +Hep B as above -- appreciate recs Instructions for avoidance of alcohol as well as limiting physical activity given +monospot Will need outpatient follow up monitoring of LFTs to ensure returning to normal and cleared HBsAg x 2 Cough drops prn sore throat, zofran prn nausea, ibuprofen prn fever/headache Albuterol HFA prn sob/wheezing --> improved on exam Continue to monitor overnight, patient hopeful for d/c in AM (2) Direct hyperbilirubinemia: Plan: Bilirubin trending down Continue to monitor Will need outpatient follow up/labs/hepBsAg as above (3) Infectious mononucleosis: Plan: + monospot as above (4) Hyponatremia: Plan: resolved with IVF continue to monitor hydration status in AM now off IVF (5) Acute hepatitis: Plan: as above, 2nd to mono +/- hepatits B? Other labs pending as above Elevated INR On admission, noted to be at 1.2. Repeat same Likely secondary to the above. Monitor. If continues to rise, can consider vitamin K Psoriasis Stable, no acute needs. On Otezla [employer] DVT Prophylaxis SCDs, ambulation Admission and Anticipated Discharge Date Admission Date: August 03, 2021 Results & Data Results & Data ([facility]) Vital Signs (Past 12 Hours) Vital Signs Temp Pulse Resp BP Pulse Ox 08/04/21 22:45 36.8 C 88 16 121/62 98 PG Care Time/CCT Total # of Minutes Spent Total Time Spent with Patient: Total time spent is greater than 50% in coordination of care (as documented) at patient's floor/unit and/or counseling patient: Coding Diagnoses Transaminitis R74.01 Direct hyperbilirubinemia E80.6 Infectious mononucleosis B27.90 Hyponatremia E87.1 Acute hepatitis B17.9
--- NOTE | 2021-08-05 08:30 | Gastroenterology Progress Note ---
Date of Service August 05, 2021 Assessment & Plan (1) Acute hepatitis: Plan: LFTs remain elevated. Total bilirubin has decreased from 6.2-3.5 this morning. AST is down from 4 50-3 64. ALT was 693 yesterday was 760 today. Alk phos 198 yesterday 231 this morning. HBsAg is positive, consistent with acute or chronic infection, not vaccination, other serologies pending. Clinically this is most consistent with acute infectious mononucleosis and chronic Hepatitis B infection. Hep B core IgM testing is pending. HIV negative. Hep C and Hep A pending. Bilirubin elevation represents cholestasis and not biliary obstruction, no further evaluation for obstruction is indicated. No specific treatment, just general support and observation. The patient was on a biologic (Otezla)for Psoriasis. INR is WNL. Patient will need close outpatient follow- up which I will assist to arrange. Please refer to supervising physician addendum for further recommendations. (2) Transaminitis: Admission and Anticipated Discharge Date Admission Date: August 03, 2021 Supervising Physician Co-Signing Physician Notes Pt was discharged prior to my rounding today so not seen by me. Subjective The patient is awake alert and oriented this morning sitting in bed. States he is feeling pretty good. Denies any abdominal pain. Denies nausea this morning. He has had no vomiting. He was able to consume his diet well without any difficulty. He was previously on Otezla for psoriasis. Continues to have a sore throat. He denies any current sexual partners. Would like to go home and is frustrated that he may still be in the hospital. Review of Systems Review of Systems: All systems reviewed & are unremarkable except as noted in Subjective Physical Exam Constitutional: WD/WN, vitals as above Respiratory: normal respiratory effort, lungs clear to auscultation Cardiovascular: RRR, no murmur, no edema Gastrointestinal (Abdomen): Inspection/Auscultation: abdomen normal to inspection and normal bowel sounds; abdomen not distended Percussion/Palpation: abdomen soft and + hepatosplenomegaly; abdomen nontender, no guarding and abdomen not rigid Skin: + jaundice Psychiatric: A+Ox3, euthymic affect Results & Data ([facility]) Vital Signs (Past 12 Hours) Vital Signs Temp Pulse Resp BP Pulse Ox 08/04/21 22:45 36.8 C 88 16 121/62 98 Laboratory Results Laboratory Results - last 24 hr 08/03/21 08/04/21 08/04/21 19:01 08:47 08:47 WBC 9.01 RBC 3.57 L Hgb 11.8 L Hct 35.4 L MCV 99.2 MCH 33.1 MCHC 33.3 RDW Std Deviation 52.7 H RDW Coeff of Emily 14.9 H Plt Count 164 MPV 9.7 Neutrophils % (Manual) 39.5 Lymphocytes % (Manual) 27.2 Reactive Lymphs % (Man) 17.5 Monocytes % (Manual) 14.9 Myelocytes % (Man) 0.9 Neutrophils # (Manual) 3.56 Total Absolute Neuts 3.56 Lymphocytes # (Manual) 2.45 Reactive Lymphs # 1.58 Total Abs Lymphocytes 4.03 H Monocytes # (Manual) 1.34 H Myelocytes # (Manual) 0.08 H RBC Morphology Unremarkable PT 11.8 INR 1.2 H Sodium Potassium Chloride Carbon Dioxide Anion Gap BUN Creatinine Est Cr Clr Drug Dosing Est GFR ( Amer) Est GFR (Non-Af Amer) BUN/Creatinine Ratio Glucose Calcium Total Bilirubin Direct Bilirubin AST ALT Alkaline Phosphatase Total Protein Albumin Globulin Albumin/Globulin Ratio Hepatitis A IgM Ab NON-REACTIVE Hep Bs Antigen NON-REACTIVE Hep B Core IgM Ab NON-REACTIVE 08/04/21 08/05/21 08/05/21 08:47 06:15 06:15 WBC 10.56 RBC 3.61 L Hgb 12.0 L Hct 35.5 L MCV 98.3 MCH 33.2 MCHC 33.8 RDW Std Deviation 53.2 H RDW Coeff of Emily 15.1 H Plt Count 206 MPV 9.8 Neutrophils % (Manual) Lymphocytes % (Manual) Reactive Lymphs % (Man) Monocytes % (Manual) Myelocytes % (Man) Neutrophils # (Manual) Total Absolute Neuts Lymphocytes # (Manual) Reactive Lymphs # Total Abs Lymphocytes Monocytes # (Manual) Myelocytes # (Manual) RBC Morphology PT INR Sodium 138 136 Potassium 3.9 4.1 Chloride 107 105 Carbon Dioxide 25 26 Anion Gap 6.0 5.0 BUN 9 10 Creatinine 0.89 0.97 Est Cr Clr Drug Dosing 139.1 127.7 Est GFR ( Amer) 142.7 129.7 Est GFR (Non-Af Amer) 123.1 111.9 BUN/Creatinine Ratio 10.1 10.6 Glucose 96 93 Calcium 9.3 9.2 Total Bilirubin 6.2 H 3.5 H Direct Bilirubin Pending AST 450 H 364 H ALT 693 H 760 H Alkaline Phosphatase 198 H 231 H Total Protein 7.0 7.2 Albumin 2.8 L 2.9 L Globulin 4.2 H Albumin/Globulin Ratio 0.7 L Hepatitis A IgM Ab Hep Bs Antigen Hep B Core IgM Ab 08/05/21 06:15 WBC RBC Hgb Hct MCV MCH MCHC RDW Std Deviation RDW Coeff of Eimly Plt Count MPV Neutrophils % (Manual) Lymphocytes % (Manual) Reactive Lymphs % (Man) Monocytes % (Manual) Myelocytes % (Man) Neutrophils # (Manual) Total Absolute Neuts Lymphocytes # (Manual) Reactive Lymphs # Total Abs Lymphocytes Monocytes # (Manual) Myelocytes # (Manual) RBC Morphology PT 11.5 INR 1.1 Sodium Potassium Chloride Carbon Dioxide Anion Gap BUN Creatinine Est Cr Clr Drug Dosing Est GFR ( Amer) Est GFR (Non-Af Amer) BUN/Creatinine Ratio Glucose Calcium Total Bilirubin Direct Bilirubin AST ALT Alkaline Phosphatase Total Protein Albumin Globulin Albumin/Globulin Ratio Hepatitis A IgM Ab Hep Bs Antigen Hep B Core IgM Ab
[2021-08-05 08:34] LABS: Bilirubin Direct 2.7 mg/dl (0-0.2)
[2021-08-05] MEDS ORDERED: Influenza Vaccine (Fluarix) 0.5 ML SYR (Standard Dose) IM ONE (12:00)
--- NOTE | 2021-08-05 12:42 | Discharge Summary ---
Date of Service August 05, 2021 Admission HPI Per Admitting Provider Isaias is a 20-year-old male with a history of psoriasis (on biologic) who presented to [facility] following referral from [facility] for jaundice and generalized illness. History is obtained from patient. Patient states that on Monday, he began having a sore throat and felt ill. He says that as the week went on, he attempted to do his schoolwork, but progressively felt more ill. He felt febrile. Says he lost his appetite. Occasionally felt nauseous without vomiting. No significant belly pain throughout this time. This morning, he did take an exam, but because feeling i ll, he did decide to go to [facility] for evaluation. On further history taking, he said that approximately 6 weeks ago, he did have direct salivary contact with another individual; unknown mono status. He has felt in his normal health up until Monday. He is not currently or formally sexually active. Denies any use of IV drugs. Denies any alcohol use. His only significant past medical history is psoriasis, for which he is prescribed to the biologic. He last took this approximately 4 weeks ago. He does work at the [employer]. In the ER, patient was found to be mildly tachycardic and afebrile with jaundice. His labs were significant for a white count of approximately 13,000, normal platelets, INR 1.2. He had evidence of a direct hyperbilirubinemia with total bilirubin at 10.2, direct bilirubin at 7.5. Transaminitis appreciated with AST 423 and ALT 686. His mono screen was positive. Covid negative. Lipase negative. He did undergo a CT of the abdomen and pelvis, which did demonstrate moderate hepatosplenomegaly without evidence of biliary ductal dilation. He was given 2 L of fluid, Zofran, and famotidine. Principal Diagnosis Daggett, Elevated LFTs/Hepatitis Discharge Exam General: WD/WN, no acute appearing male, pleasant and cooperative resting in bed Eyes: +scleral icterus (improving), EOMI ENT: mmm, +tonsillar injection without exudate, +cervical lymphadenopathy, moist mm Resp: CTAB, faint expiratory wheezing, no crackles or rales, on room air CV: RRR, no m/r/g, no edema GI: + BS, soft, non-tender, +hepatomegaly ; no blum MSK; moves all extremities, no focal deficits Psych: AOx3, euthymic Skin: +jaundice (improved) Discharge Data Allergies Allergy/AdvReac Type Severity Reaction Status Date / Time No Known Allergies Allergy Unverified 08/03/21 16:11 Consultations 08/03/21 17:59 ED Decision to Admit Stat 08/04/21 07:00 Consult Gastroenterology Routine Ordered Studies 08/03/21 15:15 CT abd pelvis IV con only Stat Hospital Course (1) Transaminitis: 20-year-old male without significant past medical history presented for nausea and jaundice (for several days until told by co-workers). Occ Etoh use Subsequently found to have evidence of transaminitis, direct hyperbilirubinemia, and positive Monospot. COVID [address]-A/P demonstrating moderate hepatosplenomegaly without biliary ductal dilatation WBC 13, lymphocytic predominance-- > wnl on repeat On IVF LR @125cc/hr --> Now tolerating diet and can d/c TB 10.2--> 6.2 --> 3.5 (DB 7.5--> 2.7) AST 423 --> 450 --> 364 ALT 686--> 693 --> 760 ALP 230--> 198 --> 231 [place] by GI to be cholestatic pattern from mono and will take time to clear -- outpt f/u Anaplasmosis smear negative, PCR pending, Lyme Negative, babesia pending HIV, , CMV, Hepatitis panel pending --> HepBsAg positive on preliminary but NON-REACTIVE on panel HIV negative --> Should be noted patient on Otezla for hx Psoriasis and would states he had lab testing prior to start but unsure what labs those were. Given insurance wouldn't approve without would suspect should have been checked in past +Hep B as above -- appreciate recs. NON_REACTIVE ON CONFIRMATORY TEST CMV pending at time of d/c however reviewed and appears prior infection. To follow up with GI in one week for follow up and was provided lab slip for repeat LFTs within the week. Instructions for avoidance of alcohol as well as limiting physical activity given +monospot Will need outpatient follow up monitoring of LFTs to ensure returning to normal and cleared HBsAg x 2 by GI during f/u Cough drops prn sore throat, zofran prn nausea, ibuprofen prn fever/headache Encouraged pushing oral fluids at home. Patient anxious for discharge and without pain, tolerating regular diet, no abd pain and jaundice improving. May take several weeks. (2) Direct hyperbilirubinemia: Bilirubin trending down Continue to monitor outpatient with follow up as above Will need outpatient follow up/labs/hepBsAg as above (3) Infectious mononucleosis: + monospot as above no contact sports (4) Hyponatremia: resolved with IVF (5) Acute hepatitis: as above, 2nd to mono +/- hepatits B? NON_reactive on confirmatory and CMV pending at time of d/c. Labs back currently showing old infection IgG + but IgM negative To f/u GI next week, repeat labs, further testing Of note, on Otezla as above and would have had to have testing prior to starting this Elevated INR On admission, noted to be at 1.2. Repeat 1.1 prior to d/c Likely secondary to the above. Psoriasis Stable, no acute needs. On Otezla [employer] DVT Prophylaxis SCDs, ambulation during admission Total Time Total Time Spent Total Time Spent (In Minutes): 45 Discharge Plan Discharge Items Patient Disposition: Home - Self-Care Reason For Visit: transaminities, hyperbili, likely mono Discharge Diagnosis: Daggett, Hepatitis (elevation in liver function testing) Goals: You have been hospitalized for an acute medical problem. During your stay at [facility], we have made an effort to correct the problem that brought you to the hospital while keeping you as comfortable as possible. Medications were used to bring your condition under control and your discharge instructions will include directions for any medications you should take after leaving the hospital. Please make sure you see your Primary Care Provider as part of your follow up plan. Activity: As commented below Activity Comment: AVOID CONTACT SPORTS 6 WEEKS Non-emergency contact: Primary Care Provider Call non-emergency contact if: you have any medication questions, your symptoms worsen, your pain is not controlled and your pain is concerning for you Follow-up/Referrals: [facility] [Primary Care Provider] - Giancarlo Peguero MD [Physician] - (call for an appointment within 1 week) Diet: Regular Ambulatory Orders: Hepatic Function (Liver) Panel (Routine) Timeframe: 1 Week Location: Determined by Patient Ordered By: Maria Del Carmen Monsalve Attending Provider Instructions: You have been hospitalized for jaundice and elevated liver function testing. Daggett testing was positive. Please avoid contact sports for 6 weeks for risk for spleen rupture given the positive mono. This is typically supportive care and ensuring well hydrated. Your hepatitis B surface antigen was positive but was non-reactive on further testing. HIV testing is negative. CMV testing is still pending. Your bilirubin is improving and should come down over time but LFTs are still elevated. You should have continued monitoring of these labs to ensure resolution. You should have follow up with GI pending further lab values if these reveal any positive labs that would need further treatment. Please follow up with S within the week to monitor your progress. Please continue to use ibuprofen over Tylenol for any pains, fevers or aches to avoid any damage to your liver. Please also avoid all alcohol until labs values have normalized. You have been sent a prescription for zofran to utilize as needed for nausea as discussed. Please DRINK LOTS OF WATER TO ENSURE YOU STAY HYDRATED. At least 8 - 8oz glasses of water. Please return to the emergency room with any increased pain, inability to keep up with oral intake, chest pain, shortness of breath, or for any other symptoms that are concerning for you. It has been a pleasure being a part of the medical team providing for you while you have been in the hospital. Take care! Pending Studies at Discharge: Yes Studies:: CMV Stand-Alone Forms: My [facility] [place], Work/School Release Medications and DC Order Prescriptions: New ibuprofen 600 mg Tablet 600 mg PO Q6H PRN (Reason: fever or pain) Qty: 12 RF: 0 ondansetron 4 mg tablet,disintegrating 4 mg PO BID PRN (Reason: nausea and vomiting) Qty: 7 RF: 0 Continued fexofenadine-pseudoephedrine 180-240 mg Tablet Extended Release 24 Hr 1 tab PO QAM RF: 0 Discharge Orders: Discharge Order (Routine); Ordered 08/05/21 Ordered By: Maria Del Carmen Alcantara Admission Data Admit Date/Time: 08/03/21 18:35 Attending Provider: Ryan Mac Admit Provider: Kosta Redmond Primary Care Provider: [facility] Other Providers: Vasyl Pringle Leonard S. Other Interventions: Discharge Summary Assessment (RN) Last Done: 08/05/21 13:34 Supervising Physician Co-Signing Physician Notes I reviewed above note and agree with it. During face to face encounter, I performed history of hospital stay and physical examination. D/W APC Maria Del Carmen Alcantara. Answered all of the patient's questions. Patient's transaminitis has improved. recommend repeat labs in a week. Coding Level of Care Code D/C DAY MANAGEMENT >30 MINS Diagnoses Transaminitis R74.01 Direct hyperbilirubinemia E80.6 Infectious mononucleosis B27.90 Hyponatremia E87.1 Acute hepatitis B17.9
[2021-08-06 11:05] LABS: CMV IgM Antibody <30.00 AU/mL
[2021-08-06 22:43] LABS: Babesia microti DNA Not Detected (Not Detected)
== END 2021-08-05 14:14 | disposition home or self-care (01) | DRG 866 ==
LOC: ED 14:37 → SUATTDRO 18:35 → 3E 18:35